=== PATIENT | female | born 1960 | race Caucasian/White ===

== ENCOUNTER 2020-02-29 08:08 | Outpatient (CLI) | payer OTHER, SELFPAY ==
[2020-02-29 08:51] LABS: Basophils Percent Auto 0.4 % (0.2-1.2); Eosinophils Absolute Auto 0.1 K/mm3 (0-0.3); Eosinophils Percent Auto 2.8 % (0-4.4); Hematocrit 38.1 % (37.0-47.0); Hemoglobin 12.8 g/dL (12.0-15.0); Immature Granulocyte Absolute 0.02 K/mm3 (0.00-0.031); Immature Granulocyte Percent A 0.4 % (0-0.5); Lymphocytes Absolute Auto 1.96 K/mm3 (0.9-3.2); Mean Corpuscular HGB Conc 33.6 g/dl (32-36); Mean Corpuscular Volume 92.3 fl (80-100); Mean Platelet Volume 9.7 fl (7.4-10.4); Monocytes Absolute Auto 0.5 K/mm3 (0.1-0.6); Monocytes Percent Auto 11.3 % (2.6-8.5); Neutrophils Percent Auto 43.1 % (45.5-73.1); Platelet Count Result 340 k/mm3 (150-375); Red Blood Count 4.13 M/mm3 (4.2-5.4); Red Cell Distribution Width 12.8 % (11.5-14.5); White Blood Count 4.7 K/mm3 (4.5-10.0)
[2020-02-29 09:06] LABS: Alanine Aminotransferase 29 U/L (4-35); Albumin Level 4.5 g/dL (3.5-5.1); Alkaline Phosphatase 63 U/L (38-126); Aspartate Amino Transferase 26 U/L (14-36); Bilirubin,Total 0.2 mg/dL (0.2-1.3); Blood Urea Nitrogen 16 mg/dL (7-17); Calcium 9.3 mg/dL (8.4-10.2); Carbon Dioxide 28 mmol/L (22-30); Chloride 105 mmol/L (98-107); Cholesterol 245 mg/dL (0-200); Estimated Glomerular Filt Rate > 60; Glucose 88 mg/dL (65-105); HDL Direct 55 mg/dL; Potassium 4.7 mmol/L (3.4-5.0); Sodium 140 mmol/L (137-145); Triglycerides 276 mg/dL (<150)
[2020-02-29 09:17] LABS: LDL Cholesterol Direct 143 mg/dL
== END 2020-02-29 08:09 | disposition home or self-care (01) ==
LOC: ANHLAB 08:10
PROVIDERS: PCP Internal Medicine; Visit Provider Nurse Practitioner
DX: E78.00 Pure hypercholesterolemia, unspecified (principal); I10 Essential (primary) hypertension
CPT/HCPCS: 36415; 80053; 80061; 85025

== ENCOUNTER 2020-05-06 09:51 | Outpatient (CLI) | payer OTHER, SELFPAY ==
--- NOTE | ~2020-05-06 | DEXA_ITS ---
Bone Density Report Name: Jaclyn Boykin Age: 60 Sex: Female Ethnicity: White Date of : 1960 Indication: postmenopausal; asthma or emphysema; Referring Provider: Deysi Herrmann Study: Bone densitometry was performed. Exam Date: May 06, 2020 Accession number: [id number] Bone Density: Region BMD T-score Z-score Classification AP Spine (L1-L4) 0.940 -1.0 0.4 Normal Femoral Neck (Left) 0.593 -2.3 -1.1 Osteopenia Total Hip (Left) 0.797 -1.2 -0.3 Osteopenia Total Hip Bilateral Avg 0.811 -1.1 -0.2 Osteopenia Femoral Neck (Right) 0.607 -2.2 -0.9 Osteopenia Total Hip (Right) 0.825 -1.0 -0.1 Normal World Health Organization criteria for BMD impression classify patients as: Normal (T-score at or above -1.0), Osteopenia (T-score between -1.0 and -2.5), or Osteoporosis (T-score at or below -2.5). 10-year Fracture Risk(1): Major Osteoporotic Fracture 9.7% Hip Fracture 1.5% Reported Risk Factors: [place] (), Neck BMD=0.593, BMI=22.9 (1) FRAX(R) Version 3.08. Fracture probability calculated for an untreated patient. Fracture probability may be lower if the patient has received treatment. Clinical Information Provided by Patient: Has used the following medications: Vitamin D, Calcium Has the following medical conditions: Asthma or Emphysema Patient maximum height was 62 Menopause Age: 51 Drinks caffeinated beverages Onset of menses at age 14 Number of children 1 Impression: The patient has low bone mass, based on the Left Femoral Neck T-score. The patient has an estimated ten-year risk of hip fracture of 1.5% and an estimated ten-year risk of major fracture of 9.7%, based on the WHO FRAX algorithm. Discussion: BONE DENSITY IS LOW AT ONE OR MORE SKELETAL SITES. This patient's lowest T-score is low at one or more skeletal sites. It meets the World Health Organization's (WHO) criteria for ?low bone mass? (T-score between -1.0 and -2.5). The patient's 10-year risk of fracture as calculated by FRAX is less than the threshold where pharmacological therapy is recommended by the National Osteoporosis Foundation (NOF). However, all treatment decisions require clinical judgment and consideration of individual patient factors, including patient preferences, comorbidities, previous drug use, risk factors not captured in the FRAX model (e.g., frailty, falls, vitamin D deficiency, increased bone turnover, interval significant decline in bone density) and possible under or overestimation of fracture risk by FRAX. The patient should follow a healthful lifestyle (good nutrition with adequate calcium and vitamin D, and appropriate weight-bearing exercise). Follow-Up: Consider repeating this study in 2 to 3 years to reassess this patient's status, or sooner if there is some new clinical indication. Reported by: Sebastián
== END 2020-05-06 09:52 | disposition home or self-care (01) ==
LOC: ANHIMG 09:52
PROVIDERS: PCP Internal Medicine; Visit Provider Nurse Practitioner
DX: Z78.0 Asymptomatic menopausal state (principal); M85.852 Other specified disorders of bone density and structure, left thigh; M85.851 Other specified disorders of bone density and structure, right thigh
CPT/HCPCS: 77080

== ENCOUNTER 2020-08-23 07:37 | Outpatient (CLI) | payer OTHER, SELFPAY ==
--- NOTE | ~2020-08-23 | MM_ITS ---
EXAMINATION: MM screening barbra BI w ivette HISTORY: Screening mammogram TECHNIQUE: Craniocaudal and mediolateral oblique 3-D tomosynthesis images were obtained and synthetic 2-D images were generated. Bilateral rotated lateral cc views. .CAD analysis was submitted and inter preted. COMPARISON: 08/02/2019, 08/08/2018 bilateral digital screening mammogram examinations BREAST PARENCHYMAL COMPOSITION: There are scattered areas of fibroglandular density. FINDINGS: There is no evidence of suspicious mass, calcification, or architectural distortion to sugg est malignancy in either breast. There has been no suspicious interval change. IMPRESSION: 1. No mammographic evidence of malignancy. 2. Recommend routine screening mammography in one year. BI-RADS Category 1: Negative Reviewed, dictated and finalized at location A. ONAL COMPUTER SPECIALIST
== END 2020-08-23 07:38 | disposition home or self-care (01) ==
LOC: ANHIMG 07:39
PROVIDERS: PCP Internal Medicine; Visit Provider Obstetrics & Gynecology
DX: Z12.31 Encounter for screening mammogram for malignant neoplasm of breast (principal)
CPT/HCPCS: 77063; 77067

== ENCOUNTER 2020-12-24 09:26 | Emergency (ER) | payer OTHER, SELFPAY ==
[2020-12-24 09:30] VITALS: BP 178/84; PULSE 91; RESP 16; TEMP 36.8; O2SAT 100
--- NOTE | 2020-12-24 09:33 | ED.GENADULT ---
HPI - General Adult General Chief complaint: Dizziness Stated complaint: VERTIGO Time Seen by Provider: 12/24/20 09:33 Source: patient and RN notes reviewed Mode of arrival: ambulatory Limitations: no limitations History of Present Illness HPI narrative: 60-year-old female presents with complaints of dizziness that has been going on for the past 28 hours. Jaclyn reports symptoms started upon awakening on 12/23/2020 approximately 05:00 with increasing symptoms throughout the night. Diazepam and exercises (learned during physical therapy for vertigo in the past) with some relief. History of Vertigo, last episode 2019. Exacerbating factors consist of changing position too fast turning head from side to side too fast. Mild relieving factors is sitting still. Nausea with 1 episode of emesis (last on 12/23/2020) without abdominal pain. Tolerating p.o. intake well. Denies ear pain, ear itching, ear trauma, trauma to head, syncopal episodes, altered vision, altered speech, confusion, or seizure activity. Denies headache, numbness or tingling in extremities. Denies chest pain or dyspnea. Denies URI symptoms, fever, or chills. Remains active. LMP postmenopausal. The patient reports she have not been diagnosed with COVID-19. The patient reports she is not waiting for the results of a COVID-19 lab test. The patient reports she do not have weakness or fatigue. The patient reports she do not have a new or worsening cough or shortness of breath. The patient reports she do not have any rhinorrhea, congestion, sore throat, loss of taste or smell, and diarrhea. Denies recent traveling. Denies concerns for COVID-19 or exposures been home with limited outdoor exposure except for essential household needs, work, and return home. At this time, patient is not suspected of having COVID-19. Some parts of this dictation were generated by voice recognition software and may contain typographical and/or grammatical inaccuracies. Related Data Allergies Allergy/AdvReac Type Severity Reaction Status Date / Time acetaminophen Allergy Mild RASH/SWELLI Verified 03/16/19 17:33 NG sumatriptan Allergy Mild HEART Verified 03/16/19 17:33 PALPITATIONS topiramate Allergy Mild HEART Verified 03/16/19 17:33 PALPITATION dicyclomine Allergy Unknown Verified 03/16/19 17:33 levofloxacin Allergy Unknown Verified 03/16/19 17:33 tramadol AdvReac Unknown CRAWLING Verified 03/16/19 17:33 OUT OF SKIN Contrast Media Allergy Mild Uncoded 03/16/19 17:33 HYDROCODONE BIT Allergy Mild RASH/SWELLI Uncoded 03/16/19 17:33 NG SUMATRIPTAN SUCCINATE Allergy Mild HEART Uncoded 03/16/19 17:33 PALPITATIONS Review of Systems Review of Systems: Narrative: CONSTITUTIONAL: Denies fever, chills, sweats. EYES: Denies visual changes, redness, discharge. ENT: Denies rhinorrhea, congestion, sore throat, otalgia. CARDIOVASCULAR: Denies chest pain, palpitations, edema. RESPIRATORY: Denies dyspnea, wheezing, cough. GASTROINTESTINAL: Denies abdominal pain, diarrhea. Complains of nausea, vomiting. SKIN: Denies lesions, itching, drainage. MUSCULOSKELETAL: Denies acute back pain, joint pain, or myalgia. NEUROLOGIC: Denies numbness or focal weakness. Complains of dizziness. PSYCHIATRIC: Denies anxiety or depression. All systems reviewed & are unremarkable except as noted in HPI and below. COUNTS INCLUDE 234 BEDS AT THE [facility] Past Medical History Medical History Allergies Anemia Cerebral infarction Depression Heartburn Herniated disc History of ectopic 1992 Hyperlipidemia Hypersomnia Hypertension Migraine Vertigo Surgical History Surgical History H/O dilation and curettage 1990 H/O tubal ligation 1997 Family History Family History Sibling Family history of osteoporosis Patient's sister is
[2020-12-24 09:47] VITALS: BP 163/80; PULSE 85
[2020-12-24] MEDS: MECLIZINE HCL 25 MG TABLET 50 MG PO (09:49)
[2020-12-24 09:50] VITALS: BP 167/83; PULSE 79
[2020-12-24] MEDS: ONDANSETRON HCL ODT 4 MG TABLET PO (09:50)
[2020-12-24 09:52] VITALS: BP 155/81; PULSE 83
[2020-12-24 09:54] LABS: Glucose Point of Care 105 (65-105)
--- NOTE | 2020-12-24 09:58 | ECG_ITS ---
Measurements Intervals [place] Rate: 83 P: 24 MA: 168 QRS: -9 QRSD: 95 T: 32 QT: 378 QTc: 445 Interpretive Statements SINUS RHYTHM INCOMPLETE RIGHT BUNDLE BRANCH BLOCK BORDERLINE ECG Electronically Signed On 12-24-2020 12:42:45 CDT by Brian Barth D.O.
--- NOTE | 2020-12-24 10:15 | PC.NURSE ---
Up to bathroom with assistance. States dizziness is slightly better, but not gone.
== END 2020-12-24 10:30 | disposition home or self-care (01) ==
PROVIDERS: Emergency Provider Nurse Practitioner Family; PCP Internal Medicine
DX: H81.12 Benign paroxysmal vertigo, left ear (principal); Z87.891 Personal history of nicotine dependence; F32.9 Major depressive disorder, single episode, unspecified; E78.5 Hyperlipidemia, unspecified; I10 Essential (primary) hypertension; Z86.73 Personal history of transient ischemic attack (TIA), and cerebral infarction without residual deficits; I45.10 Unspecified right bundle-branch block
CPT/HCPCS: 82948; 93005; 99213; A9270; G0463

== ENCOUNTER 2021-01-14 07:47 | Emergency (ER) | payer OTHER, SELFPAY ==
[2021-01-14] VITALS (29 sets, daily range): BP systolic 129–177; BP diastolic 78–114; PULSE 70–96; RESP 16–24; TEMP 36.7; O2SAT 91–100
--- NOTE | ~2021-01-14 | CT_ITS ---
EXAMINATION: CT brain wo con DATE: 01/14/2021 08:20 INDICATION: CVA TECHNIQUE: Computed tomography (CT) of the head was performed without intravenous contrast. The dose- length product was 529.67 mGy-cm. Automated exposure control and iterative reconstruction technique w ere employed. COMPARISON: CT dated 07/31/2019 FINDINGS: There are scattered moderate periventricular and subcortical white matter changes, most lik sander related to small vessel ischemic disease (microangiopathy). Small chronic infarcts of the cerebel lum. No acute intracranial hemorrhage, infarction, mass or mass effect. Normal santana-white differentia tion. No ventriculomegaly or midline shift. Paranasal sinuses and mastoids are pneumatized. No depres sed skull fractures. Midline sagittal images demonstrate a normal corpus callosum and craniovertebral junction. IMPRESSION: 1. No acute intracranial abnormality. No significant interval change. Reviewed, dictated and finalized at location B.
--- NOTE | ~2021-01-14 | XR_ITS ---
EXAMINATION: XR chest 1V 01/14/2021 08:25 INDICATION: Weakness and dyspnea PROCEDURE: AP view of the chest COMPARISON: No prior studies for comparison. FINDINGS: The lungs are clear. The cardiomediastinal silhouette is within normal limits. There are no pleural effusions. There is no pneumothorax suspected. IMPRESSION: 1: NO ACUTE CARDIOPULMONARY DISEASE. Reviewed, dictated and finalized at location B.
--- NOTE | 2021-01-14 08:02 | ECG_ITS ---
Measurements Intervals [place] Rate: 77 P: 16 CT: 165 QRS: -8 QRSD: 104 T: 32 QT: 368 QTc: 418 Interpretive Statements SINUS RHYTHM INCOMPLETE RIGHT BUNDLE BRANCH BLOCK BORDERLINE ECG Electronically Signed On 01-14-2021 8:20:37 CDT by Brian Barth D.O.
--- NOTE | 2021-01-14 08:08 | ED.GENADULT ---
HPI - General Adult General Chief complaint: Dizziness Stated complaint: dizziness Time Seen by Provider: 01/14/21 07:49 Source: patient History of Present Illness HPI narrative: Patient is a 60 y/o female complaining of moderate dizziness since 1 1/2 hour ago. She describes her dizziness any light-headedness and room spinning sensation. There is no alleviating or exacerbating factor. She has some nausea, but no vomiting. She also has some chest pain. She has no focal weakness or numbness. Related Data Home Medications Medication Instructions Recorded Confirmed aspirin 81 mg PO DAILY 01/14/21 Allergies Allergy/AdvReac Type Severity Reaction Status Date / Time acetaminophen Allergy Mild RASH/SWELLI Verified 01/07/21 14:19 NG sumatriptan Allergy Mild HEART Verified 01/07/21 14:19 PALPITATIONS topiramate Allergy Mild HEART Verified 01/07/21 14:19 PALPITATION dicyclomine Allergy Unknown Verified 01/07/21 14:19 levofloxacin Allergy Unknown Verified 01/07/21 14:19 hydrocodone Allergy Rash,SWELLI Verified 01/14/21 08:07 NG triamterene Allergy Unknown Verified 01/07/21 14:19 tramadol AdvReac Unknown CRAWLING Verified 01/07/21 14:19 OUT OF SKIN Contrast Media Allergy Mild Uncoded 01/07/21 14:19 Review of Systems Constitutional: Constitutional: Denies chills, Denies fever(s), Denies headache(s) and Denies weakness Eyes: Eyes: Denies blurry vision ENT: Denies headache(s) and Denies neck pain Cardiovascular: Cardiovascular: Reports chest pain and Denies dyspnea Respiratory: Respiratory: Denies cough and Denies dyspnea Gastrointestinal: Gastrointestinal: Denies abdominal pain, Denies diarrhea, Reports nausea and Denies vomiting Genitourinary: Genitourinary: Denies hematuria and Denies dysuria Musculoskeletal: Musculoskeletal: Denies back pain and Denies neck pain Neurologic: Reports dizziness, Denies headache(s) and Denies weakness PMFSH Past Medical History Medical History Allergies Anemia Cerebral infarction Depression Heartburn Herniated disc History of ectopic 1992 Hyperlipidemia Hypersomnia Hypertension Migraine Vertigo Surgical History Surgical History H/O dilation and curettage 1990 H/O tubal ligation 1997 Family History Family History Sibling Family history of osteoporosis Patient's sister is in good health Mother Patient's mother is in good health Family history of osteoarthritis Father Patient's father is in good health Family history of diabetes mellitus in first degree relative Grandparent Family history of osteoarthritis Diabetes mellitus Other Asthma Family history of allergic disorder Family history of migraine headaches Social History Social History Smoking status: Former smoker Tobacco type: cigarettes Second hand tobacco smoke exposure: No Smoking end date: 09/20/86 Alcohol intake: current Substance use: never Gender identity (if verbalized by the patient): Female Exam Const: General: no acute distress and well developed Orientation/consciousness: oriented to person, oriented to place, oriented to time and patient oriented x3 HENMT: Head: normocephalic Ears: external ears normal General nose exam: Normal external nose present Eyes: General: appearance normal, both eyes and all related structures Conjunctivae: conjunctivae normal Neck: Neck: normal visual inspection and full ROM Chest: Chest palpation & inspection: normal inspection of the chest and no tenderness Resp: Effort & Inspection: normal respiratory effort Auscultation: clear to auscultation bilaterally Cardio: Rate: regular rate Rhythm: regular rhythm GI: GI Palp: No abdominal tenderness and Yes Soft to palpation
[2021-01-14 08:14] LABS: Basophils Percent Auto 0.2 % (0.2-1.2); Eosinophils Absolute Auto 0.1 K/mm3 (0-0.3); Eosinophils Percent Auto 1.2 % (0-4.4); Hemoglobin 12.4 g/dL (12.0-15.0); Immature Granulocyte Absolute 0.01 K/mm3 (0.00-0.031); Immature Granulocyte Percent A 0.2 % (0-0.5); Lymphocytes Absolute Auto 1.74 K/mm3 (0.9-3.2); Lymphocytes Percent Auto 35.9 % (18.3-44.2); Mean Corpuscular HGB Conc 33.5 g/dl (32-36); Mean Corpuscular Hemoglobin 31.5 pg (26-34); Mean Corpuscular Volume 93.9 fl (80-100); Mean Platelet Volume 9.9 fl (7.4-10.4); Monocytes Absolute Auto 0.5 K/mm3 (0.1-0.6); Monocytes Percent Auto 10.7 % (2.6-8.5); Neutrophils Absolute Auto 2.5 K/mm3 (1.3-6.7); Neutrophils Percent Auto 51.8 % (45.5-73.1); Platelet Count Result 312 k/mm3 (150-375); Red Blood Count 3.94 M/mm3 (4.2-5.4); Red Cell Distribution Width 12.3 % (11.5-14.5); White Blood Count 4.9 K/mm3 (4.5-10.0)
[2021-01-14 08:23] LABS: Anion Gap 7 mmol/L (8-16); Blood Urea Nitrogen 17 mg/dL (7-17); Calcium 9.4 mg/dL (8.4-10.2); Carbon Dioxide 29 mmol/L (22-30); Chloride 106 mmol/L (98-107); Estimated CRCL calculation 62 ml/min; Estimated Glomerular Filt Rate > 60; Glucose 119 mg/dL (65-105); Potassium 4.1 mmol/L (3.4-5.0); Sodium 142 mmol/L (137-145)
[2021-01-14 08:34] LABS: INR 0.8; Prothrombin Time 11.9 Seconds (11.1-14.7)
[2021-01-14 08:35] LABS: Partial Thromboplastin Time 25.8 SECONDS (22.3-36.8); Troponin I < 0.012 ng/mL (0.000-0.034)
[2021-01-14] MEDS: MECLIZINE HCL 25 MG TABLET PO (08:40)
--- NOTE | 2021-01-14 10:40 | PC.NURSE ---
pt continues to c/o some dizziness. wtg time lapse for drawing of 3 hour troponin. resting quietly on stretcher.
[2021-01-14 11:47] LABS: Troponin I < 0.012 ng/mL (0.000-0.034)
== END 2021-01-14 12:30 | disposition home or self-care (01) ==
PROVIDERS: Emergency Provider Emergency Medicine; PCP Internal Medicine
DX: R42 Dizziness and giddiness (principal); R07.9 Chest pain, unspecified; E78.5 Hyperlipidemia, unspecified; I10 Essential (primary) hypertension; Z79.82 Long term (current) use of aspirin; Z87.891 Personal history of nicotine dependence; Z86.2 Personal history of diseases of the blood and blood-forming organs and certain disorders involving the immune mechanism; I45.10 Unspecified right bundle-branch block; Z86.73 Personal history of transient ischemic attack (TIA), and cerebral infarction without residual deficits
CPT/HCPCS: 36415; 70450; 71045; 80048; 84484; 85025; 85610; 85730; 93005; 99284; A9270

== ENCOUNTER 2021-02-04 08:30 | Outpatient (CLI) | payer OTHER, SELFPAY ==
--- NOTE | 2021-02-04 08:50 | EST_ITS ---
Patient Info Name: Jaclyn Boykin Age: 61 years : 1960 Gender: Female Ht: 63 in Wt: 130 lbs BSA: 1.63 m2 Exam Date: 02/04/2021 9:33 AM Exam Location: [facility] Stress Patient Status: Outpatient Admit Date: 02/04/2021 Staff Ordering Physician: Alondra Roldan Attending Provider: Alondra Roldan Exercise Technologist: Trisha Stone CT Exercise Physician: Brian Barth DO Exam Type: CA stress test treadmill Study Info An exercise stress test was performed. Summary 1. 1. Negative Angel exercise stress test for ischemic ST changes by ECG criteria. 2. 2. Good functional capacity, achieving 10 METs of workload. 3. 3. Appropriate HR response to exercise. 4. 4. Appropriate HR recovery at 1 minute post exercise. 5. 5. No imaging with stress testing. 6. 6. Patient informed of the above results. Protocol: Angel Stress ECG Details Stage: REST Duration (min): 1 min : 37 sec Speed (mph): 0.0 Grade (%): 0 HR (bpm): 81 SBP (mmHg): 149 DBP (mmHg): 98 METS: --- Stage: REST Duration (min): 11 min : 17 sec Speed (mph): 0.0 Grade (%): 0 HR (bpm): 83 SBP (mmHg): 149 DBP (mmHg): 98 METS: --- Stage: STAGE 1 Duration (min): 1 min : 0 sec Speed (mph): 1.7 Grade (%): 10 HR (bpm): 102 SBP (mmHg): 149 DBP (mmHg): 98 METS: --- Stage: STAGE 1 Duration (min): 2 min : 0 sec Speed (mph): 1.7 Grade (%): 10 HR (bpm): 115 SBP (mmHg): 149 DBP (mmHg): 98 METS: --- Stage: STAGE 1 Duration (min): 3 min : 0 sec Speed (mph): 1.7 Grade (%): 10 HR (bpm): 114 SBP (mmHg): 180 DBP (mmHg): 77 METS: --- Stage: STAGE 2 Duration (min): 1 min : 0 sec Speed (mph): 2.5 Grade (%): 12 HR (bpm): 119 SBP (mmHg): 180 DBP (mmHg): 77 METS: --- Stage: STAGE 2 Duration (min): 2 min : 0 sec Speed (mph): 2.5 Grade (%): 12 HR (bpm): 121 SBP (mmHg): 173 DBP (mmHg): 76 METS: --- Stage: STAGE 2 Duration (min): 3 min : 0 sec Speed (mph): 2.5 Grade (%): 12 HR (bpm): 122 SBP (mmHg): 173 DBP (mmHg): 76 METS: --- Stage: STAGE 3 Duration (min): 1 min : 0 sec Speed (mph): 3.4 Grade (%): 14 HR (bpm): 135 SBP (mmHg): 175 DBP (mmHg): 71 METS: --- Stage: STAGE 3 Duration (min): 1 min : 46 sec Speed (mph): 3.4 Grade (%): 14 HR (bpm): 141 SBP (mmHg): 175 DBP (mmHg): 71 METS: --- Stage: RECOVERY Duration (min): 0 min : 13 sec Speed (mph): 1.5 Grade (%): 0 HR (bpm): 143 SBP (mmHg): 175 DBP (mmHg): 71 METS: --- Stage: RECOVERY Duration (min): 1 min : 13 sec Speed (mph): 0.0 Grade (%): 0 HR (bpm): 118 SBP (mmHg): 175 DBP (mmHg): 71 METS: --- Stage: RECOVERY Duration (min): 2 min : 13 sec Speed (mph): 0.0 Grade (%): 0 HR (bpm): 102
== END 2021-02-04 08:31 | disposition home or self-care (01) ==
PROVIDERS: PCP Internal Medicine; Visit Provider Clinical Nurse Specialist
DX: R07.89 Other chest pain (principal)
CPT/HCPCS: 93017

== ENCOUNTER 2021-04-16 14:33 | Outpatient (CLI) | payer OTHER, SELFPAY ==
[2021-04-16 14:57] LABS: Basophils Percent Auto 0.4 % (0.2-1.2); Eosinophils Absolute Auto 0.1 K/mm3 (0-0.3); Eosinophils Percent Auto 1.8 % (0-4.4); Hematocrit 39.4 % (37.0-47.0); Immature Granulocyte Absolute 0.01 K/mm3 (0.00-0.031); Immature Granulocyte Percent A 0.2 % (0-0.5); Lymphocytes Absolute Auto 1.84 K/mm3 (0.9-3.2); Lymphocytes Percent Auto 33.8 % (18.3-44.2); Mean Corpuscular Hemoglobin 31.1 pg (26-34); Mean Corpuscular Volume 94.3 fl (80-100); Mean Platelet Volume 9.8 fl (7.4-10.4); Monocytes Absolute Auto 0.4 K/mm3 (0.1-0.6); Monocytes Percent Auto 7.5 % (2.6-8.5); Neutrophils Absolute Auto 3.1 K/mm3 (1.3-6.7); Neutrophils Percent Auto 56.3 % (45.5-73.1); Platelet Count Result 334 k/mm3 (150-375); Red Blood Count 4.18 M/mm3 (4.2-5.4); Red Cell Distribution Width 12.4 % (11.5-14.5); White Blood Count 5.5 K/mm3 (4.5-10.0)
[2021-04-16 15:07] LABS: Anion Gap 10 mmol/L (8-16); Blood Urea Nitrogen 19 mg/dL (7-17); Calcium 9.6 mg/dL (8.4-10.2); Carbon Dioxide 28 mmol/L (22-30); Chloride 106 mmol/L (98-107); Estimated Glomerular Filt Rate > 60; Glucose 116 mg/dL (65-110); Potassium 4.4 mmol/L (3.4-5.0); Sodium 144 mmol/L (137-145)
[2021-04-16 15:38] LABS: Thyroid Stimulating Hormone 0.649 uIU/mL (0.465-4.680)
== END 2021-04-16 14:34 | disposition home or self-care (01) ==
PROVIDERS: PCP Internal Medicine; Visit Provider Clinical Nurse Specialist
DX: R42 Dizziness and giddiness (principal)
CPT/HCPCS: 36415; 80048; 84443; 85025

== ENCOUNTER 2021-05-02 08:00 | Outpatient (RCR) | payer OTHER, SELFPAY ==
--- NOTE | 2021-02-03 16:08 | PTOPEVAL ---
INITIAL PHYSICAL THERAPY EVALUATION and PLAN OF CARE Thank you for referring Jaclyn Boykin to [facility].? The patient is scheduled to be seen for physical therapy? 2x/week for 4 weeks. Please review, sign, date and return this plan of care TABITHA. I agree with and certify that the following plan of care is medically necessary. Referring Physician Date Admitting Provider: Attending Provider: ALLI Henao Referring Provider: *PT Outpatient Evaluation Start: 02/03/21 14:47 Freq: Status: Active Protocol: Document 02/03/21 14:45 ROSALES (Rec: 02/03/21 16:07 ROSALES [id number]) Therapy Assessment Status Assessment Status Assessment Status Evaluation Outpatient Past Medical History Past Medical History Source of Past Medical History Recalled from Previous Visit, Confirmed with Patient/Family Neurological History Hx Migraine Yes Hx Transient Ischemic Attacks (TIA) Yes Cardiovascular History Hx Hypercholesterolemia Yes Hx Hypertension Yes Musculoskeletal History Hx Spinal Surgery Yes: cervical disc replacements 2009, L5 back fusion Reproductive History Hx Post Menopausal Yes Hx Tubal Ligation Yes Hx Other Reproductive Disorders Yes: ectopic Evaluation Information Problem Diagnosis Dizziness and giddiness Onset December 2020 Additional Evaluation Detail 4th episode - being referred to a new neurologist at [facility], also has seen ENT Subjective Information 1st episode 2014, then next Query Text:As Reported By Patient/ one 4 years later, now every 2 Family years Feels like sitting still - everything spinning around her . When gets up in morning - rolls to R side to avoid triggering the sensation - the dizziness is usually on the L side. 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 Also needs to have dim lights - she is sensitive to the brightness. Last session in PT was taught eye exercises - did try them again - seems to make it worse -
--- NOTE | 2021-03-10 16:49 | PTOPEVAL ---
PHYSICAL THERAPY RE-EVALUATION and PLAN OF CARE Thank you for referring Jaclyn Boykin to [facility].? Becki has reached all goals in regards to dizziness but still having increased cervical pain. She will benefit from continued skilled PT 2x/week for 4 weeks. Please review, sign, date and return this plan of care TABITHA. I agree with and certify that the following plan of care is medically necessary. Referring Physician Date Admitting Provider: Attending Provider: ALLI Henao Referring Provider: Therapy Assessment Status Assessment Status Assessment Status Re-evaluation Evaluation Information Problem Diagnosis Dizziness and giddiness, neck pain Subjective Information Becki continues to report no Query Text:As Reported By Patient/ dizziness. Increase with neck Family pain today - both sides and has a headache. She feels that she is 75% better with work activities - but will still need to stop for repositioning at times. Still really liking the foam roller - uses it daily. Pain Assessment Self Report Pain Assessment Spine, Cervical Reported Pain Level 4 Pain Description Aching Lowest Pain Intensity 2 Greatest Pain Intensity 5 Additional Pain Comments frontal headache today Cervical and Lumbar ROM Cervical ROM Cervical Flexion (0-60) 30 Query Text:Active in Degrees Cervical Extension (0-70) 35 Query Text:Active in Degrees Cervical Lateral Flexion Right (0-50) 40 Query Text:Active in Degrees Cervical Lateral Flexion Left (0-50) 25 Query Text:Active in Degrees Cervical Rotation Right (0-90) 30 Query Text:Active in Degrees Cervical Rotation Left (0-90) 28 Query Text:Active in Degrees Cervical ROM Comments pain with most motions Cervical and Lumbar Muscle Testing Cervical Muscle Testing Deep Cervical Flexion 8 sec Palpation Assessment Palpation Palpation stiffness with P-A mob T3-C7, increase in soft tissue tension - bilat upper trapezius,levator scapulae and scalene tightness present today. Suboccipital tissue tightness also present Mild R pectoralis tightness present PT Clinical Summary Clinical Summary Protocol: PTEVCODE PT Clinical Summary Dizziness Handicap Inventory - 0% Neck Disability Index - 26%
--- NOTE | 2021-04-08 17:45 | PTOPEVAL ---
PHYSICAL THERAPY PLAN OF CARE UPDATE Thank you for referring Jaclyn Boykin to [facility].? The patient is scheduled to be seen for therapy? follow-up in 1 month. Please review, sign, date and return this plan of care TABITHA. I agree with and certify that the following plan of care is medically necessary. Referring Physician Date Attending Provider: Alondra Roldan, MATTRESS FINISHER-C Progress Diagnosis Dizziness and giddiness, neck pain Onset December 2020 Subjective Information Overall feeling much improved Query Text:As Reported By Patient/ with involvement of dry Family needling treatments. States that she does not feel like her pain relief will be permanent. And due to her history, I agree that she may need assist in pain relief intermittently. Self Report Pain Assessment Spine, Cervical Reported Pain Level 2 Pain Description Aching Other Pain Description . Lowest Pain Intensity 2 Greatest Pain Intensity 5 Pain Score Pain Score 2: Self Report Interventions Used Interventions Used By Clinicians Dry Needling,Manual Therapy Techniques Cervical and Lumbar ROM Cervical ROM Cervical Flexion (0-60) 30 Query Text:Active in Degrees Cervical Extension (0-70) 35 Query Text:Active in Degrees Cervical Lateral Flexion Right (0-50) 40 Query Text:Active in Degrees Cervical Lateral Flexion Left (0-50) 25 Query Text:Active in Degrees Cervical Rotation Right (0-90) 45 Query Text:Active in Degrees Cervical Rotation Left (0-90) 4 Query Text:Active in Degrees Cervical ROM 75% of Normal Cervical ROM Comments . Palpation Assessment Palpation Palpation quality of soft tissue improving; continues to have some tightness Manual Therapy Manual Therapy Manual Therapy Location cervical Patient Position Prone Manual Therapy Treatment Soft Tissue Mobilization Manual Therapy Movement Direction Anterior-Posterior Movement Findings Moderate Hypomobility Treatment Comments performed soft tissue work to Query Text:Include Technique and bilateral upper trapezius, Result of Technique infraspinatus, and cervical extensors/paraspinals Functional Dry Needling Location Bilateral Muscle Location infraspinatus, upper trapezius Muscle Treatment Position Prone Alcohol Prep Don
== END 2021-05-04 23:59 | disposition home or self-care (01) ==
LOC: ANHHIPT 08:00
PROVIDERS: PCP Internal Medicine; Visit Provider Clinical Nurse Specialist
DX: R42 Dizziness and giddiness (principal)
CPT/HCPCS: 97035; 97110; 97140; 97162

== ENCOUNTER 2021-05-14 11:17 | Outpatient (RCR) | payer OTHER, SELFPAY ==
--- NOTE | 2021-05-13 17:12 | PCPTNOTE ---
The treatment documented on this account is a continuation of the treatment documented on visit number [id number]. Please see documentation on both accounts to view progress. The Plan of Care has been transitioned and updated within the new V#. I have addressed and agree with the discipline specific Problems, Interventions, and Goals for the current certification period. Completed interventions, outcomes, and problems have been marked as Inactive to facilitate the copying of the Care plan routine for recurring accounts.
--- NOTE | 2021-05-13 17:13 | PCPTNOTE ---
PHYSICAL THERAPY DISCHARGE NOTE Attending Provider: Alondra Roldan, MARLONC Patient:Jaclyn Boykin Date of :1960 Jaclyn has participated in physical therapy for 16 visits. She was last here a month ago and we followed up on her care today. Her symptoms, she states, were doing well for a couple of weeks but feels like I am back to square one. She is going to see a new neurologist on June 04. Due to plateau in findings and symptoms I recommend discharge from PT at this time. Findings today are consistent with progress report from 04/08/2021. Thank you for referring this patient to [facility]. Please review, sign, date and return this discharge summary TBAITHA. I have been updated about the patient's current status and I agree with discharge from the above service at this time. Referring Physician Date
== END 2021-05-14 11:18 | disposition home or self-care (01) ==
LOC: ANHPT 11:17
PROVIDERS: PCP Internal Medicine; Visit Provider Clinical Nurse Specialist
DX: R42 Dizziness and giddiness (principal)
CPT/HCPCS: 97035; 97140

== ENCOUNTER 2021-09-25 07:30 | Outpatient (CLI) | payer OTHER, SELFPAY ==
--- NOTE | ~2021-09-25 | MM_ITS ---
EXAMINATION: MM screening [facility] BI w ivette HISTORY: Screening mammogram TECHNIQUE: Craniocaudal and mediolateral oblique 3-D tomosynthesis images were obtained and synthetic 2-D images were generated. CAD analysis was submitted and interpreted. COMPARISON: 08/23/2020, 08/02/2019, 08/08/2018 BREAST PARENCHYMAL COMPOSITION: There are scattered areas of fibroglandular density. FINDINGS: There is no evidence of suspicious mass, calcification, or architectural distortion to sugg est malignancy in either breast. There has been no suspicious interval change. IMPRESSION: 1. No mammographic evidence of malignancy. 2. Recommend routine screening mammography in one year. BI-RADS Category 1: Negative Reviewed, dictated and finalized at location A. AL SERVICE WINDOW CLERK
== END 2021-09-25 07:31 | disposition home or self-care (01) ==
LOC: ANHIMG 07:33
PROVIDERS: PCP Internal Medicine; Visit Provider Obstetrics & Gynecology
DX: Z12.31 Encounter for screening mammogram for malignant neoplasm of breast (principal)
CPT/HCPCS: 77063; 77067

== ENCOUNTER 2022-02-03 15:44 | Emergency (ER) | payer OTHER, SELFPAY ==
[2022-02-03 15:51] VITALS: BP 163/89; PULSE 92; RESP 18; TEMP 36.8; O2SAT 98
--- NOTE | 2022-02-03 15:52 | ED.SKABFB ---
HPI - Skin/Abscess/Foreign Bdy General Chief complaint: Skin/Abscess/Foreign Body Stated complaint: Insect Bite Rt upper arm Time Seen by Provider: 02/03/22 16:02 Source: patient and RN notes reviewed Mode of arrival: ambulatory Limitations: no limitations History of Present Illness HPI narrative: 62-year-old female presents with concern for insect bite to her right arm. Reports she was at work in a basement when she felt a bite to the upper arm she later noticed burning and stinging to the area with surrounding redness. She denies warm-ups, swollen tongue, trouble breathing. She denies. MD complaint: insect bite/sting Related Data Home Medications Medication Instructions Recorded Confirmed losartan 25 mg PO DAILY 02/03/22 02/03/22 nortriptyline 20 mg PO HS 02/03/22 02/03/22 rimegepant [Nurtec ODT] 75 mg PO DIRECTED 02/03/22 02/03/22 rosuvastatin 20 mg PO DAILY 02/03/22 02/03/22 Allergies Allergy/AdvReac Type Severity Reaction Status Date / Time acetaminophen Allergy Mild RASH/SWELLI Verified 01/07/21 14:19 NG sumatriptan Allergy Mild HEART Verified 01/07/21 14:19 PALPITATIONS topiramate Allergy Mild HEART Verified 01/07/21 14:19 PALPITATION dicyclomine Allergy Unknown Verified 01/07/21 14:19 levofloxacin Allergy Unknown Verified 01/07/21 14:19 hydrocodone Allergy Rash,SWELLI Verified 01/14/21 08:07 NG triamterene Allergy Unknown Verified 01/07/21 14:19 tramadol AdvReac Unknown CRAWLING Verified 01/07/21 14:19 OUT OF SKIN Contrast Media Allergy Mild Uncoded 01/07/21 14:19 Review of Systems Review of Systems: CONSTITUTIONAL: Denies malaise, chills, sweats, or fever. EYES: Denies redness, or discharge. ENT: Denies swollen lips, swollen tongue CARDIOVASCULAR: Denies chest pain, palpitations, or edema. RESPIRATORY: Denies cough or dyspnea. GASTROINTESTINAL: Denies abdominal pain, nausea, vomiting SKIN: Reports stinging red area on her right upper forearm MUSCULOSKELETAL: Denies joint pain or myalgia. NEUROLOGIC: Denies headache. All systems reviewed & are unremarkable except as noted in HPI and below PMFSH Past Medical History Medical History (Updated 02/03/22 @ 16:10 by Terrie Flores NP) Allergies Anemia Cerebral infarction Depression Heartburn Herniated disc History of ectopic 1992 Hyperlipidemia Hypersomnia Hypertension Migraine Vertigo Surgical History Surgical History H/O dilation and curettage 1990 H/O tubal ligation 1997 Family History Family History Sibling Family history of osteoporosis Patient's sister is in good health Mother Patient's mother is in good health Family history of osteoarthritis Father Patient's father is in good health Family history of diabetes mellitus in first degree relative Grandparent Family history of osteoarthritis Diabetes mellitus Other Asthma Family history of allergic disorder Family history of migraine headaches Social History Social History Smoking status: Former smoker Tobacco type: cigarettes Second hand tobacco smoke exposure: No Smoking end date: 09/20/86 Alcohol intake: current Substance use: never Gender identity (if verbalized by the patient): Female Sexual Orientation (if Verbalized by the Patient): Straight or Heterosexual Comments At time of signature, agree with nursing past medical, surgical, social and family history. There is no relevant family history pertinent to the presenting complaint Exam Narrative: GENERAL: Well-appearing, well-nourished, and in no acute distress. HEAD: Normocephalic, atraumatic. EYES: PERRLA, conjunctivae clear. ENT: Mucous membranes moist. NECK: Supple. No lymphadenopathy CHEST: Clear to auscultation. No respiratory distress. HEART: Regular rate and rhy
== END 2022-02-03 16:15 | disposition home or self-care (01) ==
PROVIDERS: Emergency Provider Nurse Practitioner; PCP Internal Medicine
DX: S40.861A Insect bite (nonvenomous) of right upper arm, initial encounter (principal); W57.XXXA Bitten or stung by nonvenomous insect and other nonvenomous arthropods, initial encounter; Z87.891 Personal history of nicotine dependence; R12 Heartburn; E78.5 Hyperlipidemia, unspecified; I10 Essential (primary) hypertension; Z86.73 Personal history of transient ischemic attack (TIA), and cerebral infarction without residual deficits
CPT/HCPCS: 99213; G0463

== ENCOUNTER 2022-05-08 07:33 | Outpatient (CLI) | payer OTHER, SELFPAY ==
[2022-05-08 07:43] LABS: Basophils Percent Auto 0.4 % (0.2-1.2); Eosinophils Absolute Auto 0.2 K/mm3 (0-0.3); Eosinophils Percent Auto 3.5 % (0-4.4); Hematocrit 39.1 % (37.0-47.0); Hemoglobin 12.7 g/dL (12.0-15.0); Immature Granulocyte Absolute 0.02 K/mm3 (0.00-0.031); Immature Granulocyte Percent A 0.4 % (0-0.5); Lymphocytes Absolute Auto 2.25 K/mm3 (0.9-3.2); Lymphocytes Percent Auto 44.3 % (18.3-44.2); Mean Corpuscular HGB Conc 32.5 g/dl (32-36); Mean Corpuscular Hemoglobin 30.5 pg (26-34); Mean Platelet Volume 9.4 fl (7.4-10.4); Monocytes Absolute Auto 0.5 K/mm3 (0.1-0.6); Monocytes Percent Auto 9.4 % (2.6-8.5); Neutrophils Absolute Auto 2.1 K/mm3 (1.3-6.7); Platelet Count Result 324 k/mm3 (150-375); Red Blood Count 4.16 M/mm3 (4.2-5.4); Red Cell Distribution Width 13.4 % (11.5-14.5); White Blood Count 5.1 K/mm3 (4.5-10.0)
[2022-05-08 07:58] LABS: Alanine Aminotransferase 32 U/L (6-35); Albumin Level 4.5 g/dL (3.5-5.1); Alkaline Phosphatase 68 U/L (38-126); Anion Gap 7 mmol/L (8-16); Aspartate Amino Transferase 27 U/L (14-36); Bilirubin,Total 0.2 mg/dL (0.2-1.3); Blood Urea Nitrogen 19 mg/dL (7-17); Calcium 9.6 mg/dL (8.4-10.2); Carbon Dioxide 32 mmol/L (22-30); Chloride 101 mmol/L (98-107); Cholesterol 278 mg/dL (0-200); Estimated Glomerular Filt Rate > 60; Glucose 98 mg/dL (65-110); HDL Direct 54 mg/dL; Potassium 4.2 mmol/L (3.4-5.0); Sodium 140 mmol/L (137-145); Triglycerides 231 mg/dL (<150)
[2022-05-08 08:09] LABS: LDL Cholesterol Direct 162 mg/dL
[2022-05-08 08:50] LABS: Vitamin D 25 Hydroxy 77.3 ng/mL
== END 2022-05-08 07:34 | disposition home or self-care (01) ==
PROVIDERS: PCP Internal Medicine; Visit Provider Nurse Practitioner
DX: M85.80 Other specified disorders of bone density and structure, unspecified site (principal); I10 Essential (primary) hypertension
CPT/HCPCS: 36415; 80053; 80061; 82306; 84443; 85025

== ENCOUNTER 2022-07-09 15:53 | Outpatient (CLI) | payer OTHER, SELFPAY ==
--- NOTE | ~2022-07-09 | DEXA_ITS ---
Bone Density Report Name: TOBIAS ZAMBRANO Age: 62 Sex: Female Ethnicity: White Date of : 1960 Indication: postmenopausal; screening for osteoporosis; height loss; prior fracture; Referring Provider: MARCELINO FLORES Study: Bone densitometry was performed. Exam Date: July 09, 2022 Accession number: [id number] Bone Density: Region BMD T-score Z-score Classification AP Spine(L1-L4) 0.955 -0.8 0.7 Normal Femoral Neck (Left) 0.565 -2.6 -1.2 Osteoporosis Total Hip (Left) 0.763 -1.5 -0.4 Osteopenia Femoral Neck (Right) 0.612 -2.1 -0.8 Osteopenia Total Hip (Right) 0.821 -1.0 0.0 Normal Total Hip Mean 0.792 -1.3 -0.2 Osteopenia World Health Organization criteria for BMD impression classify patients as: Normal (T-score at or above -1.0), Osteopenia (T-score between -1.0 and -2.5), or Osteoporosis (T-score at or below -2.5). 10-year Fracture Risk: FRAX not reported because: Some T-score for Spine Total or Hip Total or Femoral Neck at or below -2.5 Prior hip or vertebral fracture Clinical Information Provided by Patient: Have had a previous hip or vertebral fracture Has had a low trauma fracture Has used the following medications: Vitamin D Patient maximum height was 63 Menopause Age: 51 Drinks caffeinated beverages Onset of menses at age 13 Number of children 1 Impression: The patient has established osteoporosis, based on the Left Femoral Neck T-score and the existence of a prior fracture. The patient has risk factors, including: previous fracture. Discussion: HIGH RISK OF FRACTURE. BONE DENSITY IS UNDESIRABLY LOW AT ONE OR MORE SKELETAL SITES, CONSISTENT WITH POSTMENOPAUSAL OSTEOPOROSIS. This patient's lowest T-score, in a patient who has previously fractured, meets the World Health Organization's (WHO) criteria for severe osteoporosis. In untreated patients, the risk of osteoporotic fracture increases approximately two-fold for each 1.0 SD decrease in T-score. Low bone density is not the only risk factor for fracture; also consider factors such as patient's age, frailty or poor health, risk of falling, risk of injury, previous osteoporotic fracture, family history of osteoporosis, cigarette smoking, low body weight, etc. Not everyone with low bone mineral density has osteoporosis; osteomalacia and other metabolic bone disorders should also be considered. Patients who have osteoporosis should be evaluated for specific diseases and conditions (secondary causes) that may cause or contribute to bone loss. The [place] [employer]ocrinologists (AACE) and National Osteoporosis Foundation (NOF) recommend pharmacologic intervention for all postmenopausal women with a previous hip or vertebral fracture and a T-score in this range. The patient should follow a healthful lifestyle (good n
== END 2022-07-09 15:54 | disposition home or self-care (01) ==
PROVIDERS: PCP Internal Medicine; Visit Provider Nurse Practitioner
DX: Z78.0 Asymptomatic menopausal state (principal); M81.0 Age-related osteoporosis without current pathological fracture; M85.852 Other specified disorders of bone density and structure, left thigh; M85.851 Other specified disorders of bone density and structure, right thigh
CPT/HCPCS: 77080

== ENCOUNTER 2022-07-22 15:51 | Emergency (ER) | payer OTHER, SELFPAY ==
[2022-07-22 16:53] VITALS: BP 152/88; PULSE 87; RESP 18; TEMP 36.9; O2SAT 99
--- NOTE | 2022-07-22 17:00 | ED.DENTAL ---
HPI - Dental/Oral General Chief complaint: Dental/Oral Stated complaint: toothache Time Seen by Provider: 07/22/22 17:00 Source: patient Mode of arrival: ambulatory Limitations: no limitations History of Present Illness HPI Narrative: 62-year-old female presents with dental pain. He reports crown placed 1 week ago. Has been having pain, hot cold Sensitivity since then. call dentist and not able to see her for another 10 days. States her dentist is out sick. Has taken ibuprofen and Tylenol with no relief. A statin and has to her pain. Is concerned she has infection. All systems reviewed and negative except as noted above. Related Data Home Medications Medication Instructions Recorded Confirmed nortriptyline 10 mg capsule 20 mg PO HS 02/03/22 07/22/22 rimegepant 75 mg disintegrating 75 mg PO DIRECTED 02/03/22 07/22/22 tablet (Nurtec ODT) prochlorperazine maleate 10 mg 10 mg PO Q8H PRN Nausea 04/30/22 07/22/22 tablet fremanezumab-vfrm 225 mg/1.5 mL 225 mg subcut MONTHLY 07/17/22 07/22/22 subcutaneous syringe (Ajovy Syringe) Allergies Allergy/AdvReac Type Severity Reaction Status Date / Time acetaminophen Allergy Mild RASH/SWELLI Verified 07/22/22 17:05 NG sumatriptan Allergy Mild HEART Verified 07/22/22 17:05 PALPITATIONS topiramate Allergy Mild HEART Verified 07/22/22 17:05 PALPITATION dicyclomine Allergy Unknown Chest Pain Verified 07/22/22 17:05 levofloxacin Allergy Unknown Chest Pain Verified 07/22/22 17:05 hydrocodone Allergy Rash,SWELLI Verified 07/22/22 17:05 NG triamterene Allergy Unknown Verified 07/22/22 17:05 tramadol AdvReac Unknown CRAWLING Verified 07/22/22 17:05 OUT OF SKIN Contrast Media Allergy Mild Hives Uncoded 07/22/22 17:05 Review of Systems Review of Systems: CONSTITUTIONAL: Denies fever, chills, or sweats. EYES: Denies visual changes, redness, or discharge. ENT: Denies rhinorrhea, congestion, sore throat, or otalgia. Reports dental pain. CARDIOVASCULAR: Denies chest pain, palpitations, or edema. RESPIRATORY: Denies cough or dyspnea. GASTROINTESTINAL: Denies abdominal pain, nausea, vomiting, or diarrhea. GENITOURINARY: Denies dysuria or hematuria. SKIN: Denies rash or itching. MUSCULOSKELETAL: Denies back pain, joint pain, or myalgia. NEUROLOGIC: Denies headache, numbness, or weakness. PSYCHIATRIC: Denies anxiety or depression. All other systems reviewed are negative, except as documented in HPI. [facility] Past Medical History Medical History Allergies Anemia Cerebral infarction Depression Heartburn Herniated disc History of ectopic 1992 Hyperlipidemia Hypersomnia Hypertension Migraine Vertigo Surgical History Surgical History H/O dilation and curettage 1990 H/O tubal ligation 1997 Family History Family History Sibling Family history of osteoporosis Patient's sister is in good health Mother Patient's mother is in good health Family history of osteoarthritis Father Patient's father is in good health Family history of diabetes mellitus in first degree relative Grandparent Family history of osteoarthritis Diabetes mellitus Other Asthma Family history of allergic disorder Family history of migraine headaches Social History Social History Smoking status: Former smoker Tobacco type: cigarettes Second hand tobacco smoke exposure: No Smoking end date: 09/20/86 Alcohol intake: current Substance use: never Gender identity (if verbalized by the patient): Female Sexual Orientation (if Verbalized by the Patient): Straight or Heterosexual Comments At time of signature, agree with nursing past medical, surgical, social and family history. There is no relevant f
== END 2022-07-22 17:20 | disposition home or self-care (01) ==
PROVIDERS: Emergency Provider Nurse Practitioner Family; PCP Internal Medicine
DX: K08.89 Other specified disorders of teeth and supporting structures (principal); Z87.891 Personal history of nicotine dependence; I25.2 Old myocardial infarction; F32.A Depression, unspecified; E78.5 Hyperlipidemia, unspecified; I10 Essential (primary) hypertension
CPT/HCPCS: 99213; G0463

== ENCOUNTER 2022-08-12 12:55 | Emergency (ER) | payer OTHER, SELFPAY ==
--- NOTE | 2022-08-12 13:10 | ED.URI ---
HPI - URI/Sore Throat General Chief Complaint: Upper Respiratory Infection Stated Complaint: sinus congestion, cough Time Seen by Provider: 08/12/22 13:10 Source: patient Mode of arrival: ambulatory Limitations: no limitations History of Present Illness HPI Narrative: 62-year-old female presents with complaint of sinus congestion, pressure, sinus headaches for approximately 10 days. Is using Claritin-D and Flonase with no relief. Reports today she is feeling fatigued and sinus pain is worse. All systems reviewed and negative except as noted above. Related Data Home Medications Medication Instructions Recorded Confirmed nortriptyline 10 mg capsule 20 mg PO HS 02/03/22 08/12/22 rimegepant 75 mg disintegrating 75 mg PO DIRECTED 02/03/22 08/12/22 tablet (Nurtec ODT) prochlorperazine maleate 10 mg 10 mg PO Q8H PRN Nausea 04/30/22 08/12/22 tablet fremanezumab-vfrm 225 mg/1.5 mL 225 mg subcut MONTHLY 07/17/22 08/12/22 subcutaneous syringe (Ajovy Syringe) Allergies Allergy/AdvReac Type Severity Reaction Status Date / Time acetaminophen Allergy Mild RASH/SWELLI Verified 08/12/22 13:02 NG sumatriptan Allergy Mild HEART Verified 08/12/22 13:02 PALPITATIONS topiramate Allergy Mild HEART Verified 08/12/22 13:02 PALPITATION dicyclomine Allergy Unknown Chest Pain Verified 08/12/22 13:02 levofloxacin Allergy Unknown Chest Pain Verified 08/12/22 13:02 hydrocodone Allergy Rash,SWELLI Verified 08/12/22 13:02 NG triamterene Allergy Unknown Verified 08/12/22 13:02 tramadol AdvReac Unknown CRAWLING Verified 08/12/22 13:02 OUT OF SKIN Contrast Media Allergy Mild Hives Uncoded 08/12/22 13:02 Review of Systems Review of Systems: CONSTITUTIONAL: Denies fever, chills, or sweats. EYES: Denies visual changes, redness, or discharge. ENT: Reports rhinorrhea, congestion, sinus pressure. Denies sore throat, or otalgia. CARDIOVASCULAR: Denies chest pain, palpitations, or edema. RESPIRATORY: Denies cough or dyspnea. GASTROINTESTINAL: Denies abdominal pain, nausea, vomiting, or diarrhea. GENITOURINARY: Denies dysuria or hematuria. SKIN: Denies rash or itching. MUSCULOSKELETAL: Denies back pain, joint pain, or myalgia. NEUROLOGIC: Denies headache, numbness, or weakness. PSYCHIATRIC: Denies anxiety or depression. All other systems reviewed are negative, except as documented in HPI. [facility] Past Medical History Medical History Allergies Anemia Cerebral infarction Depression Heartburn Herniated disc History of ectopic 1992 Hyperlipidemia Hypersomnia Hypertension Migraine Vertigo Surgical History Surgical History H/O dilation and curettage 1990 H/O tubal ligation 1997 Family History Family History Sibling Family history of osteoporosis Patient's sister is in good health Mother Patient's mother is in good health Family history of osteoarthritis Father Patient's father is in good health Family history of diabetes mellitus in first degree relative Grandparent Family history of osteoarthritis Diabetes mellitus Other Asthma Family history of allergic disorder Family history of migraine headaches Social History Social History Smoking status: Former smoker Tobacco type: cigarettes Second hand tobacco smoke exposure: No Smoking end date: 09/20/86 Alcohol intake: current Substance use: never Gender identity (if verbalized by the patient): Female Sexual Orientation (if Verbalized by the Patient): Straight or Heterosexual Comments At time of signature, agree with nursing past medical, surgical, social and family history. There is no relevant family history pertinent to the presenting complaint. Exam Narrative: GE
[2022-08-12 13:12] VITALS: BP 145/74; PULSE 98; RESP 18; TEMP 37.2; O2SAT 99
== END 2022-08-12 13:25 | disposition home or self-care (01) ==
PROVIDERS: Emergency Provider Nurse Practitioner Family; PCP Internal Medicine
DX: J01.90 Acute sinusitis, unspecified (principal); Z87.891 Personal history of nicotine dependence; E78.5 Hyperlipidemia, unspecified; I10 Essential (primary) hypertension; K21.9 Gastro-esophageal reflux disease without esophagitis; Z86.73 Personal history of transient ischemic attack (TIA), and cerebral infarction without residual deficits
CPT/HCPCS: 99213; G0463

== ENCOUNTER 2022-11-19 07:29 | Outpatient (CLI) | payer OTHER, SELFPAY ==
--- NOTE | ~2022-11-19 | MM_ITS ---
EXAMINATION: MM screening [facility] BI w ivette HISTORY: Screening mammogram TECHNIQUE: Craniocaudal and mediolateral oblique 3-D tomosynthesis images were obtained and synthetic 2-D images were generated. Bilateral rotated lateral CC views. CAD analysis was submitted and interp reted. COMPARISON: 09/25/2021, 08/23/2020, 08/02/2019 bilateral screening mammogram examinations BREAST PARENCHYMAL COMPOSITION: There are scattered areas of fibroglandular density. FINDINGS: Stable mild fibroglandular asymmetry. Occasional bilateral benign calcifications. There is no evidence of suspicious mass, calcification, or architectural distortion to suggest malignancy in e ither breast. There has been no suspicious interval change. IMPRESSION: 1. No mammographic evidence of malignancy. 2. Recommend routine screening mammography in one year. BI-RADS Category 2: Benign finding(s). Reviewed, dictated and finalized at location A. ENTARY PRINCIPAL
== END 2022-11-19 07:30 | disposition home or self-care (01) ==
PROVIDERS: PCP Internal Medicine; Visit Provider Obstetrics & Gynecology
DX: Z12.31 Encounter for screening mammogram for malignant neoplasm of breast (principal)
CPT/HCPCS: 77063; 77067

== ENCOUNTER 2022-11-20 07:44 | Outpatient (CLI) | payer OTHER, SELFPAY ==
[2022-11-20 08:43] LABS: Alanine Aminotransferase 38 U/L (6-35); Albumin Level 4.7 g/dL (3.5-5.1); Alkaline Phosphatase 63 U/L (38-126); Anion Gap 5 mmol/L (8-16); Aspartate Amino Transferase 30 U/L (14-36); Bilirubin,Total 0.4 mg/dL (0.2-1.3); Blood Urea Nitrogen 19 mg/dL (7-17); Calcium 10.3 mg/dL (8.4-10.2); Carbon Dioxide 31 mmol/L (22-30); Chloride 102 mmol/L (98-107); Cholesterol 272 mg/dL (0-200); Estimated Glomerular Filt Rate > 60; Glucose 103 mg/dL (65-110); HDL Direct 58 mg/dL; Potassium 4.5 mmol/L (3.4-5.0); Sodium 138 mmol/L (137-145); Triglycerides 163 mg/dL (<150)
[2022-11-20 08:53] LABS: LDL Cholesterol Direct 146 mg/dL
== END 2022-11-20 07:45 | disposition home or self-care (01) ==
LOC: ANHLAB 07:44
PROVIDERS: PCP Internal Medicine; Visit Provider Nurse Practitioner
DX: E78.5 Hyperlipidemia, unspecified (principal)
CPT/HCPCS: 36415; 80053; 80061

== ENCOUNTER 2023-02-12 10:23 | Outpatient (CLI) | payer OTHER, SELFPAY ==
--- NOTE | ~2023-02-12 | MR_ITS ---
MRI of the right shoulder Technique: Axial proton-density fat-sat images, coronal proton density fat-sat and T2 fat-sat images, and sagittal T1-weighted and T2 fat-sat images were acquired. Clinical History: Pain Findings: There is mild AC joint degenerative change, with minimal subacromial spur. Coracoclavicular , coracoacromial, and coracohumeral ligaments appear intact. There is severe tendinosis of the distal supraspinatus tendon, and mild to moderate tendinosis of the distal infraspinatus tendon. No partial or full-thickness tear of these tendons is seen. Subscapular is tendon is intact, with moderate to severe tendinosis. Tendon of the long head of the biceps is int act, with intra-articular tendinosis. Glenoid labrum is intact, without evidence of tear. No significant degenerative change of the glenohumeral joint noted. Inferior glenohumeral ligament is intact. There is prominent enthesopathic change at the greater tuberosity humerus at the supraspinat us tendon insertion. There is focal fluid distention of the subacromial/subdeltoid bursa. No muscle a trophy or edema. Impression: Extensive rotator cuff tendinosis, without partial or full-thickness tear. Subacromial/subdeltoid bursitis. Reviewed, dictated and finalized at [facility]. Impression: Extensive rotator cuff tendinosis, without partial or full-thickness tear. Subacromial/subdeltoid bursitis.
== END 2023-02-12 10:24 | disposition home or self-care (01) ==
PROVIDERS: PCP Internal Medicine; Visit Provider Nurse Practitioner
DX: M75.51 Bursitis of right shoulder (principal)
CPT/HCPCS: 73221

== ENCOUNTER 2023-05-12 08:00 | Outpatient (RCR) | payer OTHER, SELFPAY ==
--- NOTE | 2023-04-16 14:15 | PTOPEVAL1 ---
Assessment and note entered by Gisela Stover, PT Evaluation Information Assessment Status Evaluation Diagnosis Pain in right shoulder, oth. 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 Came home, went to chiropractor and iced thought the pain would resolve and it did not. Saw orthopeadic MD who gave her a shot. Since the shot pain is on and off but did improve some. If no improvement is to go back Can't lay on right side. Reported Pain Level Pain Score 5: Self Report Assessment PT Clinical Summary Pt presents with complaints of right shoulder pain that began a few months ao after caring for her mother. MRI findings show tendonosis of multpile tendons without tearing. Pt demo's abnormal alignment and postures, muscle tone bilat upper traps, decreased ROM, and (+) Hawkin's-Juan Alberto testing for impingement. Thus patient will greatly benefit from physical therapy to address deficits and improve function with less pain. Plan of Care Interventions Electrical Stimulation,Hot Pack/Cold Pack,Manual Therapy,Neuro Re-education,Patient/Caregiver Educati,Therapeutic Activities,Therapeutic Exercise,Ultrasound PT Services Indicated Yes Treatment Frequency and 2-3x weekly x 8 weeks Duration These treatments will address the objective and functional deficits as defined above. The patient will be advanced safely and appropriately in order for the patient to progress towards his/her prior level of function. Additional exercises will be introduced and as well as a comprehensive home exercise program upon discharge, if needed, ?to ensure carryover of functional gains achieved in the clinic. This treatment plan has been reviewed and agreement upon by the patient.
--- NOTE | 2023-04-16 14:15 | OPREHPOC ---
Outpatient Therapy Plan of Care This is a Multidisciplinary Plan of Care that may contain components documented by all disciplines (PT, OT, and ST.) PT Goal 1 Goal Pt will be independent in HEP Target Visit 16 PT Goal 2 Goal Pt will verbalize understanding of diagnosis and prognosis Target Visit 8 PT Problem 2 PT Problem #2 Pain PT Goal 1 Goal Pt will report greatest pain level at 3/10 or less Target Visit 8 PT Goal 2 Goal Pt will report resolution of pain Target Visit 16 PT Problem 3 PT Problem #3 Impaired Range of Motion PT Goal 1 Goal Pt will demo AROM shoulder abduction in frontal plane to 90 degrees Target Visit 8 PT Goal 2 Goal Pt will demo full AROM of RUE comapred to LUE Target Visit 16 PT Problem 4 PT Problem #4 Impaired Strength PT Goal 1 Goal Pt will demo strength of 4/5 in all tested planes PT Problem 5 PT Problem #5 Impaired Functional ADLs PT Goal 1 Goal Pt will report ability to work without pain Target Visit 10 PT Goal 2 Goal Pt will report ability to dress without pain
--- NOTE | 2023-05-12 16:06 | PTOPDC ---
Assessment and note entered by Gisela Stover, PT Assessment Status Discharge Diagnosis Pain in right shoulder, oth. shoulder leasions, right shoulder Onset 01/2023 Subjective Information Pt continues to have difficulty sleeping the most and also pain with reaching posterior to pull up pants. Cont to be unable to lay on right side. Attempted use of shoulder decompression pillow to allow laying on right side without putting pressure on shoulder, however this was not helpful. Patient feels no improvement and actually feels worse than when started. Has had an ergonomic evaluation of her work space and is supposed to get a keyboard pull out tomorrow. Reported Pain Level Pain Score 6: Self Report Assessment PT Clinical Summary Pt has attended therapy consistently for her right shoulder pain. She has been consistent in her home program and cryotherapy, has had her work space ergonomically evaluated, has tried both conservative and aggressive forms of physical therapy with soft tissue, stretching, and strengthening. Pain has worsened since evaluation with decreased strength testing due to pain. As patient has not made any progress and has actually worsened in discomfort and testing, is being referred back to orthopeadic specialist for further evaluation.
== END 2023-05-13 09:11 | disposition home or self-care (01) ==
LOC: ANHHIPT 08:00
PROVIDERS: PCP Internal Medicine; Visit Provider Orthopaedic Surgery
DX: M75.81 Other shoulder lesions, right shoulder (principal); M25.511 Pain in right shoulder
CPT/HCPCS: 97014; 97110; 97112; 97140; 97161; 97750; G0283

== ENCOUNTER 2023-07-03 10:05 | Emergency (ER) | payer OTHER, SELFPAY ==
--- NOTE | ~2023-07-03 | XR_ITS ---
EXAMINATION: XR humerus RT DATE: 07/03/2023 11:22 INDICATION: Right upper arm pain and swelling. TECHNIQUE: 2 views of right humerus were obtained. COMPARISON: Right shoulder radiographs 04/06/2023 FINDINGS: Bone alignment is normal. No fracture. There is mild osteoarthritis of glenohumeral joint a nd acromioclavicular joint. IMPRESSION: 1. Mild polyarticular osteoarthritis. Reviewed, dictated and finalized at location A.
--- NOTE | 2023-07-03 10:40 | ED.UPPEXIN ---
HPI - Extremity Injury (Upper) General Chief Complaint: Extremity Injury, Upper Stated Complaint: rt arm pain Time Seen by Provider: 07/03/23 10:40 Source: patient Mode of arrival: ambulatory Limitations: no limitations History of Present Illness HPI narrative: patient is a 63-year-old female who presents with pain in right biceps. Patient states she had cortisone injection last week for were bursitis and right shoulder. Patient states she went to bed and everything was fine swelling and pain to bicep. Patient has been taking ibuprofen with no relief. Denies any numbness, tingling, weakness to hand. does report tenderness on palpation swollen area. Denies any redness or warmth to area. Related Data Home Medications Medication Instructions Recorded Confirmed nortriptyline 10 mg capsule 20 mg PO HS 02/03/22 07/03/23 fremanezumab-vfrm 225 mg/1.5 mL 225 mg subcut MONTHLY 07/17/22 07/03/23 subcutaneous syringe (Ajovy Syringe) Allergies Allergy/AdvReac Type Severity Reaction Status Date / Time acetaminophen Allergy Mild RASH/SWELLI Verified 07/03/23 10:48 NG sumatriptan Allergy Mild HEART Verified 07/03/23 10:48 PALPITATIONS topiramate Allergy Mild HEART Verified 07/03/23 10:48 PALPITATION dicyclomine Allergy Unknown Chest Pain Verified 07/03/23 10:48 levofloxacin Allergy Unknown Chest Pain Verified 07/03/23 10:48 hydrocodone Allergy Rash,SWELLI Verified 07/03/23 10:48 NG triamterene Allergy Unknown Verified 07/03/23 10:48 tramadol AdvReac Unknown CRAWLING Verified 07/03/23 10:48 OUT OF SKIN Contrast Media Allergy Mild Hives Uncoded 07/03/23 10:48 Review of Systems Review of Systems: All systems reviewed & are unremarkable except as noted in HPI and below Constitutional: Constitutional: Denies body ache(s), Denies chills, Denies fatigue, Denies fever(s), Denies headache(s), Denies malaise and Denies weakness Eyes: Eyes: Denies blurry vision, Denies irritation and Denies loss of vision ENT: Denies otalgia, Denies headache(s), Denies nasal discharge, Denies sinus pain and Denies sore throat Cardiovascular: Cardiovascular: Denies chest pain, Denies irregular heart rhythm and Denies dyspnea Respiratory: Respiratory: Denies dyspnea Gastrointestinal: Gastrointestinal: Denies abdominal pain, Denies melena, Denies hematochezia, Denies diarrhea, Denies nausea and Denies vomiting Musculoskeletal: Musculoskeletal: Denies back pain, Denies myalgias, Denies arthralgias and Reports muscle cramps Integumentary/Breasts: Skin/Breast: Denies pruritus and Denies rash Neurologic: Denies headache(s), Denies loss of vision and Denies weakness Psychiatric: Psychiatric: Reports no additional psychiatric complaints Endocrine: Endocrine: Denies fatigue PMF Past Medical History Medical History Allergies Anemia Cerebral infarction Cervical vertebral fusion (~2010) Depression Heartburn Herniated disc History of ectopic 1992 Hyperlipidemia Hypersomnia Hypertension Migraine Vertigo Surgical History Surgical History H/O dilation and curettage 1990 H/O tubal ligation 1997 History of lumbar fusion (~1999) Family History Family History Sibling Family history of osteoporosis Patient's sister is in good health Mother Patient's mother is in good health Family history of osteoarthritis Father Patient's father is in good health Family history of diabetes mellitus in first degree relative Grandparent Family history of osteoarthritis Diabetes mellitus Other Asthma Family history of allergic disorder Family history of migraine headaches Social History Social History Smoking status: Former smoker Tobacco type: cigarettes
[2023-07-03 10:44] VITALS: BP 150/98; PULSE 95; RESP 18; TEMP 36.7; O2SAT 99
== END 2023-07-03 11:41 | disposition short-term general hospital (02) ==
PROVIDERS: Emergency Provider Nurse Practitioner Family; PCP Internal Medicine
DX: R22.31 Localized swelling, mass and lump, right upper limb (principal); Z87.891 Personal history of nicotine dependence; E78.5 Hyperlipidemia, unspecified; I10 Essential (primary) hypertension; F32.A Depression, unspecified
CPT/HCPCS: 73060; 99213; G0463

== ENCOUNTER 2023-07-03 11:56 | Emergency (ER) | payer OTHER, SELFPAY ==
--- NOTE | ~2023-07-03 | XR_ITS ---
EXAMINATION: XR humerus RT DATE: 07/03/2023 12:56 INDICATION: Right upper limb nontraumatic lump. TECHNIQUE: 2 views of right humerus were obtained. COMPARISON: Right humerus radiographs 11:21 AM FINDINGS: Bone alignment is normal. No fracture. There is mild osteoarthritis of glenohumeral joint a nd acromioclavicular joint. IMPRESSION: 1. Mild polyarticular osteoarthritis. Reviewed, dictated and finalized at location A.
[2023-07-03 11:58] VITALS: BP 160/87; PULSE 100; RESP 16; TEMP 36.9; O2SAT 100
--- NOTE | 2023-07-03 12:19 | ED.UPPEXIN ---
HPI - Extremity Injury (Upper) General Chief Complaint: Extremity Injury, Upper Stated Complaint: right shoulder pain Time Seen by Provider: 07/03/23 12:15 Source: patient Mode of arrival: ambulatory Limitations: no limitations History of Present Illness HPI narrative: Patient is status post cortisone injection right shoulder posteriorly 7 days ago. Yesterday felt soreness at the biceps anteriorly, woke up this morning with a lump at the same area. Tender to touch, slightly bruised. Worse with flexion and extension of the biceps. She denies any trauma. Related Data Home Medications Medication Instructions Recorded Confirmed nortriptyline 10 mg capsule 20 mg PO HS 02/03/22 07/03/23 fremanezumab-vfrm 225 mg/1.5 mL 225 mg subcut MONTHLY 07/17/22 07/03/23 subcutaneous syringe (Ajovy Syringe) Allergies Allergy/AdvReac Type Severity Reaction Status Date / Time acetaminophen Allergy Mild RASH/SWELLI Verified 07/03/23 10:48 NG sumatriptan Allergy Mild HEART Verified 07/03/23 10:48 PALPITATIONS topiramate Allergy Mild HEART Verified 07/03/23 10:48 PALPITATION dicyclomine Allergy Unknown Chest Pain Verified 07/03/23 10:48 Iodinated Contrast Media Allergy Unknown Hives Verified 07/03/23 12:52 levofloxacin Allergy Unknown Chest Pain Verified 07/03/23 10:48 hydrocodone Allergy Rash,SWELLI Verified 07/03/23 10:48 NG triamterene Allergy Unknown Verified 07/03/23 10:48 tramadol AdvReac Unknown CRAWLING Verified 07/03/23 10:48 OUT OF SKIN Review of Systems Review of Systems: All systems reviewed & are unremarkable except as noted in HPI and below PMFSH Past Medical History Medical History Allergies Anemia Cerebral infarction Cervical vertebral fusion (~2010) Depression Heartburn Herniated disc History of ectopic 1992 Hyperlipidemia Hypersomnia Hypertension Migraine Vertigo Surgical History Surgical History H/O dilation and curettage 1990 H/O tubal ligation BL 1997 History of lumbar fusion (~1999) Family History Family History Sibling Family history of osteoporosis Patient's sister is in good health Mother Patient's mother is in good health Family history of osteoarthritis Father Patient's father is in good health Family history of diabetes mellitus in first degree relative Grandparent Family history of osteoarthritis Diabetes mellitus Other Asthma Family history of allergic disorder Family history of migraine headaches Social History Social History Smoking status: Former smoker Tobacco type: cigarettes Second hand tobacco smoke exposure: No Smoking end date: 09/20/86 Alcohol intake: current Drinks per week: 3 Substance use: never Lack of Transportation: No Lack of Food: Never True Current Housing: I Have Housing Concerned About Future Housing: No Difficulty Paying Gas/Electric Bills: No Difficulty Paying for Meds: No Currently Unemployed: No Education: Associate Degree Difficulty w/ Childcare or Family Care: No Living arrangements: with family Occupation/Education: occupation Gender identity (if verbalized by the patient): Female Sexual Orientation (if Verbalized by the Patient): Straight or Heterosexual Exam Narrative: General appearance: Well-developed, well-nourished Skin: Normal color Head: Normocephalic, nontraumatic Neck: Supple, nontender Chest and respiratory: Airway patent, no respiratory distress, no accessory muscle use Heart: Regular rate/rhythm Vascular: Normal peripheral pulses, normal capillary refill. Musculoskeletal: Right arm showed 3 x 2 cm lump anteriorly, tender to touch, slightly bruised, worse with flexion and extension of the biceps. Neurologic
[2023-07-03] MEDS: IBUPROFEN 600 MG TABLET PO (13:03)
[2023-07-03 13:12] VITALS: BP 142/80; PULSE 78; RESP 16; TEMP 36.8; O2SAT 98
== END 2023-07-03 13:13 | disposition home or self-care (01) ==
PROVIDERS: Emergency Provider Emergency Medicine; PCP Internal Medicine
DX: M79.621 Pain in right upper arm (principal); E78.5 Hyperlipidemia, unspecified; I10 Essential (primary) hypertension; R12 Heartburn; Z98.1 Arthrodesis status; Z86.2 Personal history of diseases of the blood and blood-forming organs and certain disorders involving the immune mechanism; Z87.891 Personal history of nicotine dependence; M19.011 Primary osteoarthritis, right shoulder
CPT/HCPCS: 73060; 99283; A9270

== ENCOUNTER 2023-07-09 10:07 | Outpatient (CLI) | payer OTHER, SELFPAY ==
[2023-07-09 10:26] LABS: Basophils Percent Auto 0.3 % (0.2-1.2); Eosinophils Absolute Auto 0.1 K/mm3 (0-0.3); Eosinophils Percent Auto 1.6 % (0-4.4); Hemoglobin 13.7 g/dL (12.0-15.0); Immature Granulocyte Absolute 0.03 K/mm3 (0.00-0.031); Immature Granulocyte Percent A 0.4 % (0-0.5); Lymphocytes Absolute Auto 1.64 K/mm3 (0.9-3.2); Lymphocytes Percent Auto 23.6 % (18.3-44.2); Mean Corpuscular HGB Conc 31.9 g/dl (32-36); Mean Corpuscular Hemoglobin 30.9 pg (26-34); Mean Corpuscular Volume 97.1 fl (80-100); Mean Platelet Volume 9.9 fl (7.4-10.4); Monocytes Absolute Auto 0.4 K/mm3 (0.1-0.6); Monocytes Percent Auto 6.3 % (2.6-8.5); Neutrophils Absolute Auto 4.7 K/mm3 (1.3-6.7); Neutrophils Percent Auto 67.8 % (45.5-73.1); Platelet Count Result 359 k/mm3 (150-375); Red Blood Count 4.43 M/mm3 (4.2-5.4); Red Cell Distribution Width 13.4 % (11.5-14.5)
[2023-07-09 10:36] LABS: Alanine Aminotransferase 26 U/L (6-35); Albumin Level 4.7 g/dL (3.5-5.1); Alkaline Phosphatase 60 U/L (38-126); Anion Gap 5 mmol/L (8-16); Aspartate Amino Transferase 24 U/L (14-36); Bilirubin,Total 0.5 mg/dL (0.2-1.3); Blood Urea Nitrogen 16 mg/dL (7-17); Calcium 9.3 mg/dL (8.4-10.2); Carbon Dioxide 31 mmol/L (22-30); Chloride 105 mmol/L (98-107); Cholesterol 284 mg/dL (0-200); Estimated Glomerular Filt Rate > 60; Glucose 102 mg/dL (65-110); HDL Direct 76 mg/dL; Potassium 3.9 mmol/L (3.4-5.0); Sodium 141 mmol/L (137-145); Triglycerides 198 mg/dL (<150)
[2023-07-09 10:47] LABS: LDL Cholesterol Direct 144 mg/dL
[2023-07-09 11:16] LABS: Vitamin D 25 Hydroxy 71.6 ng/mL
== END 2023-07-09 10:08 | disposition home or self-care (01) ==
PROVIDERS: PCP Internal Medicine; Visit Provider Nurse Practitioner
DX: M81.0 Age-related osteoporosis without current pathological fracture (principal); E78.5 Hyperlipidemia, unspecified
CPT/HCPCS: 36415; 80053; 80061; 82306; 85025

== ENCOUNTER 2023-08-03 08:00 | Outpatient (RCR) | payer OTHER, SELFPAY ==
--- NOTE | 2023-07-09 09:28 | PTOPEVAL1 ---
Assessment and note entered by Jose Driscoll, PT Evaluation Information Assessment Status Evaluation Diagnosis Right shoulder lesions, Right shoulder pain, shoulder weakness Onset January 10 Subjective Information Reports that she had shoulder pain for a while and noticed a hematoma approximately 1 week ago. 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 Had an MRI in January of 2023. Reaching behind back and over head are the most difficult. She is having a lot of trouble just getting dressed in the morning. Reported Pain Level Pain Score 5: Self Report Assessment PT Clinical Summary Patient presents with signs and symptoms consistent with shoulder tendinosis and impingement type symptoms. Needs postural reinforcement and capsular mobility as we assess reaction to cortisone injection to determine level of structural compromise in rotator cuff and subacromial. Plan of Care Interventions Gait Training,Hot Pack/Cold Pack,Manual Therapy, Neuro Re-education,Therapeutic Activities, Therapeutic Exercise PT Services Indicated Yes Treatment Frequency and 1-2x/week for 4 weeks Duration These treatments will address the objective and functional deficits as defined above. The patient will be advanced safely and appropriately in order for the patient to progress towards his/her prior level of function. Additional exercises will be introduced and as well as a comprehensive home exercise program upon discharge, if needed, ?to ensure carryover of functional gains achieved in the clinic. This treatment plan has been reviewed and agreement upon by the patient.
--- NOTE | 2023-07-09 09:30 | OPREHPOC ---
Outpatient Therapy Plan of Care This is a Multidisciplinary Plan of Care that may contain components documented by all disciplines (PT, OT, and ST.) PT Problem 1 PT Problem #1 Knowledge Deficit PT Goal 1 Goal Independent with posturla strengthening program Target Visit 4 PT Problem 2 PT Problem #2 Pain PT Goal 1 Goal Report no pain greater than 2/10 with dressing in AM Target Visit 4 PT Problem 3 PT Problem #3 Impaired Range of Motion PT Goal 1 Goal Demonstrate 60 degrees on R shoulder internal rotation to assist with dressing and hygiene function Target Visit 8 PT Goal 2 Goal Improve R shoulder flexion ROM to 165 degrees to assist with functional active reach into cabinets in home without pain Target Visit 8 PT Problem 4 PT Problem #4 Impaired Strength PT Goal 1 Goal Improve R shoulder flexion strength to 4+/5 to assist with lifting of objects and self care Target Visit 8
--- NOTE | 2023-07-23 13:20 | PCPTNOTE ---
The patient treatment was not able to be completed on 07/21/23 due to staffing shortage. Will plan to continue treatment per plan of care.
--- NOTE | 2023-08-03 09:12 | PTOPDC ---
Assessment and note entered by Gisela Stover, PT Assessment Status Discharge Diagnosis Right shoulder lesions, Right shoulder pain, shoulder weakness Onset January 10 Subjective Information As long as is conscious of the shoulder blade placement is better with dressing. Tries to balance use of UEs. Is able to lay on right side some now. Is doing better reaching overhead. Still having shoulder pain at work. Has to stop more often because of pain. Work is ordering mouse pad but is currently on back order. Has tried two previous pads but they didn't work. Reports feeling 80% back to normal. Reported Pain Level Pain Score 3: Self Report Assessment PT Clinical Summary Pt has attended therapy previously for right shoulder, had a second steroid shot and returned to therapy for right shoulder pain. While she reports improvements in pain overall, she continues to have significant discomfort with resistance testing. She also continues to have pain while at work though her work is ordering new ergonomic equipment to assist in her work position. She shows improved postures and awareness of scapular motion in order to decompress the joint, demo's appropriate passive ROM and capsular motion. She appears to have met max benefit for therapy at this time and is being referred back to her surgeon for further options to address her shoulder pain.
== END 2023-08-10 14:20 | disposition home or self-care (01) ==
LOC: ANHHIPT 08:00
PROVIDERS: PCP Internal Medicine; Visit Provider Orthopaedic Surgery
DX: M75.81 Other shoulder lesions, right shoulder (principal); M25.511 Pain in right shoulder
CPT/HCPCS: 97014; 97110; 97140; 97161; 97750; G0283

== ENCOUNTER 2023-09-17 14:50 | Emergency (ER) | payer OTHER, SELFPAY ==
[2023-09-17 15:20] VITALS: BP 161/88; PULSE 89; RESP 16; TEMP 36.4; O2SAT 100
--- NOTE | 2023-09-17 15:42 | ED.URI ---
HPI - URI/Sore Throat General Chief Complaint: Upper Respiratory Infection Stated Complaint: Sinus Time Seen by Provider: 09/17/23 15:40 Source: patient Mode of arrival: ambulatory Limitations: no limitations History of Present Illness HPI Narrative: Jaclyn is a 63-year-old female patient presenting to the clinic today with complaints of possible sinus infection x1 0.5 weeks. She reports she has got a lot of sinus pressure and drainage. Is causing her to have a headache. Denies any chest pain or shortness of breath. MD elicited complaint: sore throat and nasal congestion Related Data Home Medications Medication Instructions Recorded Confirmed nortriptyline 10 mg capsule 20 mg PO HS 02/03/22 09/17/23 fremanezumab-vfrm 225 mg/1.5 mL 225 mg subcut MONTHLY 07/17/22 09/17/23 subcutaneous syringe (Ajovy Syringe) aspirin 81 mg tablet,delayed 81 mg PO DAILY 07/14/23 09/17/23 release (Adult Aspirin Regimen) cholecalciferol (vitamin D3) 25 25 mcg PO DAILY 07/14/23 09/17/23 mcg (1,000 unit) capsule Allergies Allergy/AdvReac Type Severity Reaction Status Date / Time acetaminophen Allergy Mild RASH/SWELLI Verified 09/17/23 15:25 NG sumatriptan Allergy Mild HEART Verified 09/17/23 15:25 PALPITATIONS topiramate Allergy Mild HEART Verified 09/17/23 15:25 PALPITATION dicyclomine Allergy Unknown Chest Pain Verified 09/17/23 15:25 Iodinated Contrast Media Allergy Unknown Hives Verified 09/17/23 15:25 levofloxacin Allergy Unknown Chest Pain Verified 09/17/23 15:25 hydrocodone Allergy Rash,SWELLI Verified 09/17/23 15:25 NG triamterene Allergy Unknown Verified 09/17/23 15:25 tramadol AdvReac Unknown CRAWLING Verified 09/17/23 15:25 OUT OF SKIN Review of Systems Review of Systems: Pertinent positives per HPI. Patient denies any fever, chills, rash, headache, visual changes, dizziness, shortness of breath, chest pain, palpitations, nausea, vomiting, diarrhea, constipation, abdominal pain, or any urinary issues. [facility] Past Medical History Medical History Allergies Anemia Cerebral infarction Cervical vertebral fusion (~2010) Depression Heartburn Herniated disc History of ectopic 1992 Hyperlipidemia Hypersomnia Hypertension Migraine Vertigo Surgical History Surgical History H/O dilation and curettage 1990 H/O tubal ligation BL 1997 History of lumbar fusion (~1999) Family History Family History Sibling Family history of osteoporosis Patient's sister is in good health Mother Patient's mother is in good health Family history of osteoarthritis Father Patient's father is in good health Family history of diabetes mellitus in first degree relative Grandparent Family history of osteoarthritis Diabetes mellitus Other Asthma Family history of allergic disorder Family history of migraine headaches Social History Social History Smoking status: Former smoker Tobacco type: cigarettes Second hand tobacco smoke exposure: No Smoking end date: 09/20/86 Alcohol intake: current Drinks per week: 3 Substance use: never Lack of Transportation: No Lack of Food: Never True Current Housing: I Have Housing Concerned About Future Housing: No Difficulty Paying Gas/Electric Bills: No Difficulty Paying for Meds: No Currently Unemployed: No Education: Associate Degree Difficulty w/ Childcare or Family Care: No Living arrangements: with family Occupation/Education: occupation Gender identity (if verbalized by the patient): Female Sexual Orientation (if Verbalized by the Patient): Straight or Heterosexual Comments At the time of my signature, I reviewed and agree with the nursing past medical
== END 2023-09-17 15:47 | disposition home or self-care (01) ==
PROVIDERS: Emergency Provider Nurse Practitioner Family; PCP Internal Medicine
DX: J01.90 Acute sinusitis, unspecified (principal); Z87.891 Personal history of nicotine dependence; R12 Heartburn; E78.5 Hyperlipidemia, unspecified; I10 Essential (primary) hypertension; F32.A Depression, unspecified; Z86.73 Personal history of transient ischemic attack (TIA), and cerebral infarction without residual deficits; Z79.82 Long term (current) use of aspirin
CPT/HCPCS: 99213; G0463

== ENCOUNTER 2023-10-14 08:15 | Outpatient (RCR) | payer OTHER, SELFPAY ==
--- NOTE | 2023-09-15 09:06 | PTOPEVAL1 ---
Assessment and note entered by Jose Driscoll, PT Evaluation Information Assessment Status Evaluation Diagnosis Right Shoulder Pain, Right shoulder lesions Onset November 2022 Subjective Information Reports that she had a shoulder hematoma which was hiding. Was updated that she is having a small tear identified by the MD. Denies radicular pain. She is R handed. 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 She is not sleeping well. Typically a R side sleeper. Reported Pain Level Pain Score 7: Self Report Assessment PT Clinical Summary Patient presents with signs and symptoms consistent with impingement with history of muscle trauma including rotator cuff and biceps. Patient will benefit from skilled therapy to address these deficits for improved functional use of dominant shoulder and improve gross functional shoulder strength. Plan of Care Interventions Electrical Stimulation,Hot Pack/Cold Pack,Manual Therapy,Neuro Re-education,Therapeutic Activities, Therapeutic Exercise PT Services Indicated Yes Treatment Frequency and 2x/week for 8 visits Duration These treatments will address the objective and functional deficits as defined above. The patient will be advanced safely and appropriately in order for the patient to progress towards his/her prior level of function. Additional exercises will be introduced and as well as a comprehensive home exercise program upon discharge, if needed, ?to ensure carryover of functional gains achieved in the clinic. This treatment plan has been reviewed and agreement upon by the patient.
--- NOTE | 2023-09-15 09:06 | OPREHPOC ---
Outpatient Therapy Plan of Care This is a Multidisciplinary Plan of Care that may contain components documented by all disciplines (PT, OT, and ST.) PT Problem 1 PT Problem #1 Knowledge Deficit PT Goal 1 Goal Independent with HEP Target Visit 4 PT Problem 2 PT Problem #2 Pain PT Goal 1 Goal Report no pain greater than 1/10 with pressure to improve sleeping Target Visit 4 PT Problem 3 PT Problem #3 Impaired Range of Motion PT Goal 1 Goal Achieve 170 degrees of R shoulder flexion ROM to improve active reach Target Visit 8 PT Problem 4 PT Problem #4 Impaired Strength PT Goal 1 Goal Improve R shoulder flexion strength to 4+/5 to improve functional lifting PT Goal 2 Goal Improve R biceps loading strength to 5/5 pain free for functional carrying and lifting ability Target Visit 8
--- NOTE | 2023-10-14 09:13 | PTOPDC ---
Assessment and note entered by Matty Infante Evaluation Information Assessment Status Discharge Diagnosis right shoulder pain, right shoulder lesion Onset November 2022 Subjective Information Pt. reports she is doing better. She reports that she still has pain at 3/10 described in the biceps. She denies any pain at the shoulder. She still expresses discouragement in regards to the deformity in the biceps. She expresses no difficulty with all IADL's. she states that she would like to follow up with her doctor regarding remaining pain. Reported Pain Level Pain Score 3: Self Report Assessment PT Clinical Summary Pt. presents with no limitation in regards to ROM and strength. She continues to present with deformity of the biceps musculature and explained to the pt. pathology of biceps tendon rupture and presentation. At this time she is encouraged to continue with her HEP and will follow up with her doctor if pain persist. Plan of Care PT Services Indicated D/C from PT to an independent HEP.
== END 2023-10-14 10:17 | disposition home or self-care (01) ==
LOC: ANHPT 08:15
PROVIDERS: PCP Internal Medicine; Visit Provider Orthopaedic Surgery
DX: M25.511 Pain in right shoulder (principal); M75.81 Other shoulder lesions, right shoulder
CPT/HCPCS: 97014; 97035; 97110; 97140; 97161; 97530; G0283

== ENCOUNTER 2024-01-28 07:43 | Outpatient (CLI) | payer OTHER, SELFPAY ==
--- NOTE | ~2024-01-28 | MM_ITS ---
EXAMINATION: MM screening barbra BI w ivette HISTORY: Screening mammogram TECHNIQUE: Craniocaudal and mediolateral oblique 3-D tomosynthesis images were obtained and synthetic 2-D images were generated. CAD analysis was submitted and interpreted. COMPARISON: 11/19/2022, 09/25/2021 bilateral screening mammogram examinations BREAST PARENCHYMAL COMPOSITION: There are scattered areas of fibroglandular density. FINDINGS: Stable mild fibroglandular asymmetry and occasional benign calcifications are again noted. There is no evidence of suspicious mass, calcification, or architectural distortion to suggest malign shelly in either breast. There has been no suspicious interval change. IMPRESSION: 1. No mammographic evidence of malignancy. 2. Recommend routine screening mammography in one year. BI-RADS Category 2: Benign finding(s). Reviewed, dictated and finalized at location B.
== END 2024-01-28 07:44 | disposition home or self-care (01) ==
LOC: ANHIMG 07:46
PROVIDERS: PCP Internal Medicine; Visit Provider Obstetrics & Gynecology
DX: Z12.31 Encounter for screening mammogram for malignant neoplasm of breast (principal)
CPT/HCPCS: 77063; 77067

== ENCOUNTER 2024-02-08 15:45 | Emergency (ER) | payer OTHER, SELFPAY ==
--- NOTE | 2024-02-08 15:48 | ED.URI ---
HPI - URI/Sore Throat General Chief Complaint: Upper Respiratory Infection Stated Complaint: sinus infection Time Seen by Provider: 02/08/24 16:07 Source: patient and RN notes reviewed Mode of arrival: ambulatory Limitations: no limitations History of Present Illness HPI Narrative: 64-year-old female presents with concern for sinus infection. She reports chronic allergy problems. Reports more than 1 week history of sinus congestion, inflammation, pain, drainage. Reports she has tried multiple [id number] medications without relief. She denies any recent fever. She reports cough MD elicited complaint: nasal congestion and sinus pain Related Data Home Medications Medication Instructions Recorded Confirmed nortriptyline 10 mg capsule 20 mg PO HS 02/03/22 02/08/24 fremanezumab-vfrm 225 mg/1.5 mL 225 mg subcut MONTHLY 07/17/22 02/08/24 subcutaneous syringe (Ajovy Syringe) aspirin 81 mg tablet,delayed 81 mg PO DAILY 07/14/23 02/08/24 release (Adult Aspirin Regimen) cholecalciferol (vitamin D3) 25 25 mcg PO DAILY 07/14/23 02/08/24 mcg (1,000 unit) capsule ubrogepant 50 mg tablet (Ubrelvy) 50 mg PO PRN PRN Migraine Headache 02/08/24 02/08/24 Allergies Allergy/AdvReac Type Severity Reaction Status Date / Time dicyclomine AdvReac Intermediate Palpitation Verified 02/08/24 15:50 s levofloxacin AdvReac Intermediate Chest Pain Verified 02/08/24 15:50 sumatriptan AdvReac Intermediate HEART Verified 02/08/24 15:50 PALPITATIONS topiramate AdvReac Intermediate HEART Verified 02/08/24 15:50 PALPITATION tramadol AdvReac Intermediate Jittery Verified 02/08/24 15:50 acetaminophen AdvReac Mild RASH/SWELLI Verified 02/08/24 15:50 NG hydrocodone AdvReac Mild Rash,SWELLI Verified 02/08/24 15:50 NG Iodinated Contrast Media AdvReac Mild Hives Verified 02/08/24 15:50 triamterene AdvReac Mild Hives Verified 02/08/24 15:50 Review of Systems Review of Systems: CONSTITUTIONAL: Denies malaise, chills, sweats, or fever. EYES: Denies visual changes, redness, or discharge. ENT: Reports rhinorrhea, congestion, sinus pain, otalgia CARDIOVASCULAR: Denies chest pain, palpitations, or edema. RESPIRATORY: Reports cough. Denies dyspnea. GASTROINTESTINAL: Denies abdominal pain, nausea, vomiting, diarrhea SKIN: Denies rash or itching. MUSCULOSKELETAL: Denies myalgia. NEUROLOGIC: Denies headache. All systems reviewed & are unremarkable except as noted in HPI and below PMFSH Past Medical History Medical History Allergies Anemia Cerebral infarction Cervical vertebral fusion (~2010) Depression Heartburn Herniated disc History of ectopic 1992 Hyperlipidemia Hypersomnia Hypertension Migraine Vertigo Surgical History Surgical History H/O dilation and curettage 1990 H/O tubal ligation BL 1997 History of lumbar fusion (~1999) Family History Family History Sibling Family history of osteoporosis Patient's sister is in good health Mother Patient's mother is in good health Family history of osteoarthritis Father Patient's father is in good health Family history of diabetes mellitus in first degree relative Grandparent Family history of osteoarthritis Diabetes mellitus Other Asthma Family history of allergic disorder Family history of migraine headaches Social History Social History Smoking status: Former smoker Tobacco type: cigarettes Second hand tobacco smoke exposure: No Smoking end date: 09/20/86 Alcohol intake: current Drinks per week: 3 Substance use: never Lack of Transportation: No Lack of Food: Never True Current Housing: I Have Housing Concerned About Future Housing: No Difficulty Paying Gas/Electric B
[2024-02-08 15:55] VITALS: BP 156/82; PULSE 95; RESP 16; TEMP 36.6; O2SAT 97
== END 2024-02-08 16:18 | disposition home or self-care (01) ==
PROVIDERS: Emergency Provider Nurse Practitioner; PCP Internal Medicine
DX: J01.90 Acute sinusitis, unspecified (principal); Z87.891 Personal history of nicotine dependence; E78.5 Hyperlipidemia, unspecified; I10 Essential (primary) hypertension; R12 Heartburn; Z79.82 Long term (current) use of aspirin; Z86.73 Personal history of transient ischemic attack (TIA), and cerebral infarction without residual deficits
CPT/HCPCS: 99213; G0463

== ENCOUNTER 2024-09-16 09:44 | Emergency (ER) | payer OTHER, SELFPAY ==
--- NOTE | ~2024-09-16 | CT_ITS ---
EXAMINATION: CT cervical spine wo con DATE: 09/16/2024 13:58 INDICATION: Neck pain. Cervical radiculopathy. TECHNIQUE: Computed tomography (CT) of the cervical spine was performed without intravenous contrast. Automated exposure control and iterative reconstruction technique were employed. The dose-length pro duct was 183.37 mGy-cm. COMPARISON: MRI dated 03/17/2012 FINDINGS: 6 degrees cervicothoracic levocurvature. Sagittal alignment is normal. C4-C7 anterior spinal fusion w ith interbody bone graft cages and anterior plate and screw fixation. Unfused vertebral body heights are normal. No fracture. Moderate disc height loss at C7-T1. Mild disc height loss at C3-C4 and T2-T3 . 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 Severe facet oste oarthritis on the right at C3-C4, bilaterally at T2-T3 and right at T3-T4. An additional mild to mode rate facet osteoarthritis throughout the remainder of the cervical spine with developing fusion acros s the facet joints on the bilaterally at C4-C5 and on the left at C6-C7. Disc bulge contributing to m ild central canal stenosis at C3-C4. Multilevel cervical neural foraminal stenosis, moderate severity on the right at C4-C5 and mild at the remaining cervical levels. Cervical soft tissues are unremarka ble. Visualized apices of lungs are clear. IMPRESSION: 1. Moderate cervical spondylosis with C4-C7 instrumented anterior spinal fusion. Reviewed, dictated and finalized at location A. TRIC ORGAN INSPECTOR AND REPAIRER IMPRESSION: 1. Moderate cervical spondylosis with C4-C7 instrumented anterior spinal fusion .
[2024-09-16 10:23] VITALS: BP 153/58; PULSE 68; RESP 14; TEMP 36.8; O2SAT 100
[2024-09-16 12:38] VITALS: BP 159/96; PULSE 97; RESP 12; TEMP 36.8; O2SAT 100
--- NOTE | 2024-09-16 13:44 | ED_ITS ---
HPI - General Adult General Chief complaint: Neck Pain/Injury Stated complaint: neck pain radiates down left arm Time Seen by Provider: 09/16/24 13:00 History of Present Illness HPI narrative: 64-year-old female presented emergency department for evaluation for left-sided neck pain. Patient states he has had left-sided neck pain for approximately 6 days now. Patient did have follow-up with her chiropractor and states that the pain had been on the right but after chiropractor the right side felt improved but after presenting her chiropractor again on Wednesday she had worsening pain on the left. Patient does report tightness of the left shoulder and pain that radiates down the left arm. Patient states she does have some associated weakness of the left arm. Patient denies any change in bowel or bladder habits. Patient has been taking Tylenol and ibuprofen for pain control. Related Data Allergies Allergy/AdvReac Type Severity Reaction Status Date / Time levofloxacin (From Levaquin) Allergy Mild Rash Verified 09/16/24 13:10 topiramate (From Topamax) Allergy Mild Palpitation Verified 09/16/24 13:10 s acetaminophen (From Vicodin) Allergy Rash Verified 09/16/24 13:10 dicyclomine Allergy Blurry Verified 09/16/24 13:10 Vision hydrocodone (From Vicodin) Allergy Rash Verified 09/16/24 13:10 ketorolac Allergy Chest Pain Verified 09/16/24 13:10 peanut Allergy Headache Verified 09/16/24 13:10 propranolol Allergy Chest Pain Verified 09/16/24 13:10 sumatriptan (From Imitrex) Allergy Palpitation Verified 09/16/24 13:10 s triamterene AdvReac weird Verified 09/16/24 13:10 feeling Review of Systems Review of Systems: All systems reviewed & are unremarkable except as noted in HPI and below Exam Narrative: APPEARANCE: Uncomfortable appearing HEAD: normocephalic, atraumatic. EYES: PERRLA/EOMI, conjunctivae clear. NOSE: Normal no drainage EARS:TMS clear with good light reflex. THROAT: Pharynx clear, no exudate. NECK: Supple. No adenopathy, no masses. RESPIRATORY: Airway patent, respirations nonlabored. Clear to auscultation bilaterally, no rales, rhonchi, wheezing. CARDIOVASCULAR: Regular rate and rhythm without murmurs rubs or gallops. ABDOMINAL: Soft, nontender, nondistended, normal bowel sounds MUSCULOSKELETAL: Tenderness to left trapezius NEURO: Alert. Cranial nerves II through XII intact. Grossly intact with strong metallic yarn slitting machine operator on left SKIN: Warm, dry. Normal Color Course Vital Signs Vital signs: Vital Signs Temperature 98.2 F 09/16/24 10:23 Pulse Rate 68 09/16/24 10:23 Respiratory Rate 14 09/16/24 10:23 Blood Pressure 153/58 H 09/16/24 10:23 Pulse Oximetry 100 09/16/24 10:23 Temperature 98.2 F 09/16/24 12:38 Pulse Rate 97 09/16/24 12:38 Respiratory Rate 12 09/16/24 12:38 Blood Pressure 159/96 H 09/16/24 12:38 Pulse Oximetry 100 09/16/24 12:38 Medical Decision Making MDM Narrative Medical decision making narrative: 64-year-old female presented emergency department for evaluation for left lateral neck and left shoulder pain with intermittent tingling down left hand. Suspect cervical radiculopathy. Patient was started on Medrol Dosepak and encouraged to have close follow-up with primary care physician for outpatient MRI as needed. All questions concerns were addressed. Patient was well- appearing at time of discharge. Differential Diagnosis Differential Diagnosis: Torticollis, trapezius strain, right neck, cervical spine injury, cervical radiculopathy Vital Signs Vital Signs: Vital Signs Temperature 98.2 F 09/16/24 10:23 Pulse Rate 68 09/16/24 10:23 Respiratory Rate 14 09/16/24 10:23 Blood Pressure 153/58 H 09/16/24 10:23 Pulse Oximetry 100 09/16/24 10:23 Temperature 98.2 F 09/16/24 12:38 Pulse Rate 97 09/16/24 12:38 Respiratory Rate 12 09/16/24 12:38 Blood Pressure 159/96 H 09/16/24 12:38 Pulse Oximetry 100 09/16/24 12:38 Lab Data Lab results reviewed: Yes I reviewed the patient's lab results. Imaging Data Radiologist's impression: Impressions Cervical Spine CT 09/16/24 14:06 IMPRESSION: 1. Moderate cervical spondylosis with C4-C7 instrumented anterior spinal fusion. Discharge Plan Discharge Clinical Impression: Cervical radiculopathy Patient Disposition: Home, Self-Care Condition: Stable Instructions: Antibiotic Form, Cervical Radiculopathy (ED) Additional Instructions: Scheduled ibuprofen for pain control. Medrol Dosepak as directed until completed. Flexeril for muscle spasm. Barclay as needed for additional pain con trol. Have close follow-up with your primary care physician for an outpatient MRI if your symptoms are not improved. Patient Language: Japanese Prescriptions: New cyclobenzaprine 10 mg tablet 10 mg PO BID PRN (Reason: muscle spasm) 7 Days Qty: 14 0RF hydrocodone-acetaminophen 5-325 mg tablet 1 tablet PO Q12H PRN (Reason: pain) 7 Days Qty: 14 0RF methylprednisolone [Medrol (Laureano)] 4 mg tablets,dose pack See Rx Instructions .ROUTE .COMPLEX Qty: 21 0RF Rx Instructions: for 6 days Follow-up/Referrals: Michel Mcgee, [Primary Care Provider] -
[2024-09-16] MEDS: HYDROcodone/acetaminophen (*CRX) 10-325 MG TABLET 1 TAB PO (14:02)
[2024-09-16] MEDS: CYCLOBENZAPRINE HCL 10 MG TABLET PO (14:02)
--- OUTSIDE RECORDS SUMMARY | 2024-09-23 11:10 | XMS_ITS | Clinical Summary ---
Author Organization [facility] Address [address] [place] [address] Care Team Providers Care Energy Conservation Engineer Name Role Phone Michel Mcgee DO Primary Care Provider [phone] Source Comments [facility],non-owned Affiliates and Associated Physician Practices is amultiple site organization consisting of ambulatory clinics and hospital sitesin [place], [place], [place] and [place]. This disclosure is being madepursuant to the Care Everywhere program and may not contain all information available regarding this patient. Last updated 18.[facility] Allergies Active Allergy Reactions Criticality Noted Date Comments Contrast-Iodinated Agents For Ct/Other Rash Medium 02/26/2017 Dicyclomine Vision Changes 02/26/2017 Sumatriptan Palpitations 02/26/2017 Levofloxacin Rash Medium 02/26/2017 Topiramate Palpitations 02/26/2017 Hydrocodone-Acetaminophen Rash Medium 02/26/2017 Zinc Swelling 02/26/2017 Medications * Be aware that medications may not be up to date on this document. Alwaysverify current medications with the patient. Medication Sig Dispensed Refills Start Date End Date Status losartan (COZAAR) 25 MG tablet Take 25 mg by mouth once daily Active omeprazole (PRILOSEC) 40 MG capsule Take 40 mg by mouth daily before breakfast Active ezetimibe (ZETIA) 10 MG tablet Take 10 mg by mouth once daily Active Probiotic Product (PROBIOTIC ADVANCED PO) Active Family History Medical History Relation Name Comments CAD (Coronary Artery Disease) Father Diabetes - Type 1 Father Diabetes - Type 1 Mother Relation Name Status Comments Father Mother Social History Tobacco Use Types Packs/Day Years Used Date Smoking Tobacco: Never Smokeless Tobacco: Never Alcohol Use Standard Drinks/Week Comments Not Asked 2 (1 standard drink = 0.6 oz pur e alcohol) Sex and Gender Information Value Date Recorded Sex Assigned at Not on file Gender Identity Not on file Sexual Orientation Not on file Last Filed Vital Signs Vital Sign Reading Time Taken Comments Blood Pressure - - Pulse - - Temperature - - Respiratory Rate - - Oxygen Saturation - - Inhaled Oxygen Concentration - - Weight 56.7 kg (125 lb) 02/26/2017 8:40 AM CDT Height 160 cm (5' 3 ) 02/26/2017 8:40 AM CDT Body Mass Index 22.14 02/26/2017 8:40 AM CDT Plan of Treatment Health Maintenance Due Date Last Done Comments COLOGUARD (AGES 45-75) - COL ON CA SCREENING 1961 COLON MONITORING 1961 COLONOSCOPY - COLON CA SCREENING 1961 CT COLONOGRAPHY - COLON CA SCREENING 1961 Colorectal Cancer Screening 1961 FIT - COLON CA SCREENING 1961 FLEX SIG - COLON CA SCREENING 1961 LIPID TESTING 1961 MAMMOGRAM 1961 PAP SMEAR 1961 HIV SCREENING 02/04/1976 HEPATITIS C SCREENING 01/30/1979 DTAP/TDAP/TD VACCINES (1 - Tdap) 02/04/1980 ZOSTER VACCINE (1 of 2) 2011 DEPRESSION SCREENING 09/20/2023 COVID-19 VACCINE ( - 2023-2 5 season) 2024 INFLUENZA VACCINE (#1) 2024 Respiratory Syncytial Virus (RSV) Vaccine Pt: or over 60 yrs (1 - 1-dose 75+ series) 02/04/2036 HEPATITIS B VACCINE Aged Out No longe r eligible based on patient's age to complete this topic HIB VACCINE Aged Out No longer eligi ble based on patient's age to complete this topic HPV VACCINE Aged Out No longer eligi ble based on patient's age to complete this topic MENINGOCOCCAL VACCINE Aged Out No catherine bibiana eligible based on patient's age to complete this topic PNEUMOCOCCAL VACCINE Aged Out No long er eligible based on patient's age to complete this topic Care Teams Energy Conservation Engineer Relationship Specialty Start Date End Date Michel Mcgee DO PCP - General Internal Medicine 02/26/17
--- OUTSIDE RECORDS SUMMARY | 2024-09-23 11:10 | XMS_ITS | Encounter Summary ---
Author Organization [facility] Address [address] [place] [address] Care Team Providers Care Button Maker And Installer Name Role Phone Michel Mcgee DO Primary Care Provider [phone] Reason for Visit * Auth/Cert Specialty Diagnoses / Procedures Referred By Contkelly t Referred To Contact Diagnoses Abdominal bloating Flatulence Abdominal pain, generalized Abdominal bloating Flatulence Abdominal pain, generalized Procedures BREATH HYDROGEN TEST Referral ID Status Reason Start Date Expiration Date Visits Re quested Visits Authorized [id number] 1 1 Encounter Details Date Type Department Care Team (Late st Contact Info) Description 02/26/2017 8:30 AM CDT - 02/26/2017 9:00 AM CDT Surgery [facility] - Endoscopy Services [address] [place] [id number] Procedure, Nursing G_I BREATH HYDROGEN TEST Surgery Details Date/Time Status Location OR Service Patient Class Case Class Case Type Trauma Case? 02/26/2017 8:30 AM Posted [facility] Lab Gastroenterology Surgery Day Care Elective > 5 days Panel 1 Procedure LRB Anes Op Region Wound Class Comments BREATH HYDROGEN TEST None Clean Con taminated Surgeon Surgeon Role Service Panel Procedure, Nursing G_I Primary Gastroenterology [address] Mcgee documented in this encounter Social History Tobacco Use Types Packs/Day Years Used Date Smoking Tobacco: Never Smokeless Tobacco: Never Alcohol Use Standard Drinks/Week Comments Not Asked 2 (1 standard drink = 0.6 oz pur e alcohol) Sex and Gender Information Value Date Recorded Sex Assigned at Not on file Gender Identity Not on file Sexual Orientation Not on file documented as of this encounter Last Filed Vital Signs Vital Sign Reading Time Taken Comments Blood Pressure - - Pulse - - Temperature - - Respiratory Rate - - Oxygen Saturation - - Inhaled Oxygen Concentration - - Weight 56.7 kg (125 lb) 02/26/2017 8:40 AM CDT Height 160 cm (5' 3 ) 02/26/2017 8:40 AM CDT Body Mass Index 22.14 02/26/2017 8:40 AM CDT documented in this encounter Functional Status Functional Status Response Date of Assess ment Is person deaf or have serious hearing difficult y? No 02/26/2017 Is person blind or have serious difficulty seein g? No 02/26/2017 Does person have serious dif ficulty walking/climbing stairs? No 02/26/2017 Does person have difficulty dressing/bathing? No 02/26/2017 Does person have difficulty doing errands alone? No 02/26/2017 Cognitive Status Response Date of Assessm ent Does person have difficulty concentrating/remembering/making decisions? No 02/26/2017 documented as of this encounter Medications at Time of Discharge Medication Sig Dispensed Refills Start Date End Date ezetimibe (ZETIA) 10 MG tablet Take 10 mg by mouth once daily losartan (COZAAR) 25 MG tablet Take 25 mg by mouth once daily omeprazole (PRILOSEC) 40 MG capsule Take 40 mg by mouth daily before breakfast Probiotic Product (PROBIOTIC ADVANCED PO) documented as of this encounter Plan of Treatment Scheduled Orders Name Type Priority Associated Diagnoses Orde r Schedule HYDROGEN BREATH TEST GI Routine ONCE for 1 Occurrences starting 02/26/2017 until 02/26/2017 documented as of this encounter Procedures Procedure Name Priority Date/Time Associated Diagnosis Comments BREATH HYDROGEN/METHANE TEST 02/26/2017 8:15 AM CDT Abdominal bloating Flatulence Abdominal pain, generalized Special Needs Dr. Mcgee documented in this encounter Visit Diagnoses Diagnosis Abdominal bloating Flatulence, eructation, and gas pain Flatulence Flatulence, eructation, and gas pain Abdominal pain, generalized documented in this encounter Care Teams Button Maker And Installer Relationship Specialty Start Date End Date Michel Mcgee DO PCP - General Internal Medicine 02/26/17 documented as of this encounter
--- OUTSIDE RECORDS SUMMARY | 2024-09-23 11:10 | XMS_ITS | Referral Summary ---
Author Organization [facility] Address [address] [place] [address] Care Team Providers Care Piano Machine Operator Name Role Phone Michel Mcgee DO Primary Care Provider [phone] Source Comments [facility],non-owned Affiliates and Associated Physician Practices is amultiple site organization consisting of ambulatory clinics and hospital sitesin [place], [place], [place] and [place]. This disclosure is being madepursuant to the Care Everywhere program and may not contain all information available regarding this patient. Last updated 18.[facility] Allergies Active Allergy Reactions Criticality Noted Date [...] Active Probiotic Product (PROBIOTIC ADVANCED PO) Active Social History Tobacco Use Types Packs/Day Years [...] Mass Index 22.14 02/26/2017 8:40 AM CDT Functional Status Functional Status Response Date of [...] person have difficulty concentrating/remembering/making decisions? No 02/26/2017 Plan of Treatment Not on file Care Teams Piano Machine Operator Relationship Specialty Start Date End Date Michel Mcgee DO PCP - General Internal Medicine 02/26/17
--- OUTSIDE RECORDS SUMMARY | 2024-09-23 11:10 | XMS_ITS | Patient Health Summary ---
Author Organization [facility] Address [address] [place] [address] Care Team Providers Care Stiff Straw Hat Washer Name Role Phone Michel Mcgee DO Primary Care Provider [phone] Note from [facility],non-owned Affiliates and Associated Physician Practices is amultiple site organization consisting of ambulatory clinics and hospital sitesin [place], [place], [place] and [place]. This disclosure is being madepursuant to the Care Everywhere program and may not contain all information available regarding this patient. Last updated 18.[facility] Allergies * Contrast-Iodinated Agents For Ct/Other(Rash) -Medium Criticality * Dicyclomine(Vision Changes) * Sumatriptan(Palpitations) * Levofloxacin(Rash) -Medium Criticality * Topiramate(Palpitations) * Hydrocodone-Acetaminophen(Rash) -Medium Criticality * Zinc(Swelling) Medications * Be aware that medications may not be up to date on this document. Alwaysverify current medications with the patient. * losartan (COZAAR) 25 MG tablet Take 25 mg by mouth once daily * omeprazole (PRILOSEC) 40 MG capsule Take 40 mg by mouth daily before breakfast * ezetimibe (ZETIA) 10 MG tablet Take 10 mg by mouth once daily * Probiotic Product (PROBIOTIC ADVANCED PO) Social History Tobacco Use Types Packs/Day Years [...] Mass Index 22.14 02/26/2017 8:40 AM CDT Procedures * BREATH HYDROGEN/METHANE TEST(Performed 02/26/2017) Performed for Abdominal bloating, Flatulence, Abdominal pain, generalized Care Teams Stiff Straw Hat Washer Relationship Specialty Start Date End Date Michel Mcgee DO PCP - General Internal Medicine 02/26/17
--- OUTSIDE RECORDS SUMMARY | 2024-09-23 11:10 | XMS_ITS | Encounter Summary ---
Author Organization [facility] Address [address] [place] [address] Care Team Providers Care Security Orderly Name Role Phone Michel Mcgee DO Primary Care Provider [phone] Reason for Visit * Auth/Cert Specialty Diagnoses / Procedures Referred By Rosalind t Referred To Contact Diagnoses Abdominal bloating Flatulence Abdominal pain, generalized Abdominal bloating Flatulence Abdominal pain, generalized Procedures BREATH HYDROGEN TEST Referral ID Status Reason Start Date Expiration Date Visits Re quested Visits Authorized [id number] 1 1 Encounter Details Date Type Department Care Team (Latest Contact Info) Description 02/26/2017 8:04 AM CDT - 02/26/2017 12:39 PM CDT Hospital Encounter [facility] - Endoscopy Services [address] [place] [address] Nicolasa Fox MD [address] [place] [id number] Surgery General Discharge Disposition: Home or Self Care Social History Tobacco Use Types Packs/Day Years [...] Mcgee documented in this encounter Visit Diagnoses Not on filedocumented in this encounter Care Teams Security Orderly Relationship Specialty Start Date End Date Michel Mcgee DO PCP - General Internal Medicine 02/26/17 documented as of this encounter
--- OUTSIDE RECORDS SUMMARY | 2024-09-23 20:54 | XMS_ITS | Encounter Summary ---
Author Organization [facility] Address [address] [place] [address]. [place] [address] [place] [address] Care Team Providers Care Cap Parts Cutter Name Role Phone Unavailable Primary Care Provider Unavailabl e Encounter Details Date Type Department Care Team (Late st Contact Info) Description 02/23/2003 Abstract [facility] CONVERSION [address] [place] [address] , Generic Conversion, Social History Tobacco Use Types Packs/Day Years Used Date Smoking Tobacco: Never Assessed Comments Unknown Sex and Gender Information Value Date Recorded Sex Assigned at Not on file Legal Sex Female 7:25 PM CDT Gender Identity Not on file Sexual Orientation Not on file documented as of this encounter Plan of Treatment Not on file documented as of this encounter Visit Diagnoses Not on filedocumented in this encounter
--- OUTSIDE RECORDS SUMMARY | 2024-09-23 20:54 | XMS_ITS | Encounter Summary ---
Author Organization [facility] Address [address] [place] [address]. [place] [address] [place] [address] Care Team Providers Care Chain Offbearer Name Role Phone Unavailable Primary Care Provider Unavailabl e Encounter Details Date Type Department Care Team (Late st Contact Info) Description 06/23/2002 Abstract [facility] CONVERSION [address] [place] [address] , Generic Conversion, Social History Tobacco Use [...]
--- OUTSIDE RECORDS SUMMARY | 2024-09-23 20:54 | XMS_ITS | Encounter Summary ---
Author Organization [facility] Address [address] [place] [address] Care Team Providers Care Slime Plant Operator Helper Name Role Phone Michel Mcgee DO Primary Care Provider [phone] Reason for Visit * Auth/Cert Specialty Diagnoses / Procedures Referred By Rosalind t Referred To Contact Diagnoses Abdominal bloating Flatulence Abdominal pain, generalized Abdominal bloating Flatulence Abdominal pain, generalized Procedures BREATH HYDROGEN TEST Referral ID Status Reason Start Date Expiration Date Visits Re quested Visits Authorized [id number] 1 1 Encounter Details Date Type Department Care Team (Latest Contact Info) Description 02/26/2017 8:04 AM CDT - 02/26/2017 12:39 PM CDT Hospital Encounter [facility] - Endoscopy Services [address] [place] [address] Nicolasa Fox MD [address] [place] [id number] Surgery General Discharge Disposition: Home or Self [...] on filedocumented in this encounter Care Teams Slime Plant Operator Helper Relationship Specialty Start Date End Date Michel Mcgee DO PCP - General Internal Medicine 02/26/17 documented as of this encounter
--- OUTSIDE RECORDS SUMMARY | 2024-09-23 20:54 | XMS_ITS | Encounter Summary ---
Author Organization [facility] Address [address] [place] [address]. [place] [address] [place] [address] Care Team Providers Care Pleat Taper Name Role Phone Unavailable Primary Care Provider Unavailabl e Encounter Details Date Type Department Care Team (Late st Contact Info) Description 11/13/2002 Abstract [facility] CONVERSION [address] [place] [address] , Generic Conversion, Social History Tobacco Use [...]
--- OUTSIDE RECORDS SUMMARY | 2024-09-23 20:54 | XMS_ITS | Encounter Summary ---
Author Organization [facility] Address [address] [place] [address]. [place] [address] [place] [address] Care Team Providers Care Head Of Ict Name Role Phone Unavailable Primary Care Provider Unavailabl e Encounter Details Date Type Department Care Team (Late st Contact Info) Description 06/30/2002 Abstract [facility] CONVERSION [address] [place] [address] , Generic Conversion, Social History Tobacco Use [...]
--- OUTSIDE RECORDS SUMMARY | 2024-09-23 20:54 | XMS_ITS | Encounter Summary ---
Author Organization [facility] Address [address] [place] [address]. [place] [address] [place] [address] Care Team Providers Care Utility Operator Name Role Phone Unavailable Primary Care Provider Unavailabl e Encounter Details Date Type Department Care Team (Late st Contact Info) Description 10/18/2006 Abstract [facility] CON[facility] [address] [place] [address] Khushboo Carballo MD [address] [place] [address] Social History Tobacco Use Types Packs/Day Years [...]
--- OUTSIDE RECORDS SUMMARY | 2024-09-23 20:54 | XMS_ITS | Encounter Summary ---
Author Organization [facility] Address [address] [place] [address]. [place] [address] [place] [address] Care Team Providers Care Lease Administration Supervisor Name Role Phone Unavailable Primary Care Provider Unavailabl e Encounter Details Date Type Department Care Team (Late st Contact Info) Description 12/20/2002 Abstract [facility] CONVERSION [address] [place] [address] , Generic Conversion, Social History Tobacco Use [...]
--- OUTSIDE RECORDS SUMMARY | 2024-09-23 20:54 | XMS_ITS | Encounter Summary ---
Author Organization [facility] Address [address] [place] [address]. [place] [address] [place] [address] Care Team Providers Care Car Pre Cooler Name Role Phone Unavailable Primary Care Provider Unavailabl e Encounter Details Date Type Department Care Team (Late st Contact Info) Description 06/27/2002 Abstract [facility] CONVERSION [address] [place] [address] , Generic Conversion, Social History Tobacco Use [...]
--- OUTSIDE RECORDS SUMMARY | 2024-09-23 20:54 | XMS_ITS | Encounter Summary ---
Author Organization [facility] Address [address] [place] [address]. [place] [address] [place] [address] Care Team Providers Care Owner Oral Surgeon Name Role Phone Unavailable Primary Care Provider Unavailabl e Encounter Details Date Type Department Care Team (Late st Contact Info) Description 06/09/[address] [facility] CONVERSION [address] [place] [address] , Generic Conversion, Social History Tobacco Use [...]
--- OUTSIDE RECORDS SUMMARY | 2024-09-23 20:54 | XMS_ITS | Encounter Summary ---
Author Organization [facility] Address [address] [place] [address]. [place] [address] [place] [address] Care Team Providers Care Application Integrator Name Role Phone Unavailable Primary Care Provider Unavailabl e Encounter Details Date Type Department Care Team (Late st Contact Info) Description 05/21/[address] [facility] CONVERSION [address] [place] [address] , Generic Conversion, Social History Tobacco Use [...]
--- OUTSIDE RECORDS SUMMARY | 2024-09-23 20:54 | XMS_ITS | Encounter Summary ---
Author Organization [facility] Address [address] [place] [address]. [place] [address] [place] [address] Care Team Providers Care Floral Assistant Name Role Phone Unavailable Primary Care Provider Unavailabl e Encounter Details Date Type Department Care Team (Late st Contact Info) Description 03/16/2001 Abstract [facility] CONVERSION [address] [place] [address] , Generic Conversion, Social History Tobacco Use [...]
--- OUTSIDE RECORDS SUMMARY | 2024-09-23 20:54 | XMS_ITS | Encounter Summary ---
Author Organization [facility] Address [address] [place] [address]. [place] [address] [place] [address] Care Team Providers Care Retail Event And Sales Assistant Name Role Phone Unavailable Primary Care Provider Unavailabl e Encounter Details Date Type Department Care Team (Late st Contact Info) Description 12/01/2007 Abstract [facility] CONVERSION [address] [place] [address] Dewayne Ford PA [address] [place] [id number] Social History Tobacco Use Types Packs/Day Years [...]
--- OUTSIDE RECORDS SUMMARY | 2024-09-23 20:54 | XMS_ITS | Encounter Summary ---
Author Organization [facility] Address [address] [place] [address]. [place] [address] [place] [address] Care Team Providers Care Office Machine Punch Operator Name Role Phone Unavailable Primary Care Provider Unavailabl e Encounter Details Date Type Department Care Team (Late st Contact Info) Description 07/23/2006 Abstract [facility] CONVERSION [address] [place] [address] , Generic Conversion, Social History Tobacco Use [...]
--- OUTSIDE RECORDS SUMMARY | 2024-09-23 20:54 | XMS_ITS | Encounter Summary ---
Author Organization [facility] Address [address] [place] [address]. [place] [address] [place] [address] Care Team Providers Care Automatic Profile Shaper Operator Name Role Phone Unavailable Primary Care Provider Unavailabl e Encounter Details Date Type Department Care Team (Late st Contact Info) Description 08/30/2002 Abstract [facility] CONVERSION [address] [place] [address] , Generic Conversion, Social History Tobacco Use [...]
--- OUTSIDE RECORDS SUMMARY | 2024-09-23 20:54 | XMS_ITS | Encounter Summary ---
Author Organization [facility] Address [address] [place] [address]. [place] [address] [place] [address] Care Team Providers Care Probation Manager Name Role Phone Unavailable Primary Care Provider Unavailabl e Encounter Details Date Type Department Care Team (Late st Contact Info) Description 06/13/2002 Abstract [facility] CONVERSION [address] [place] [address] , Generic Conversion, Social History Tobacco Use [...]
--- OUTSIDE RECORDS SUMMARY | 2024-09-23 20:54 | XMS_ITS | Encounter Summary ---
Author Organization [facility] Address [address] [place] [address]. [place] [address] [place] [address] Care Team Providers Care Waiter/Waitress Cocktail Lounge Name Role Phone Unavailable Primary Care Provider Unavailabl e Encounter Details Date Type Department Care Team (Late st Contact Info) Description 11/18/2002 Abstract [facility] CONVERSION [address] [place] [address] , Generic Conversion, Social History Tobacco Use [...]
--- OUTSIDE RECORDS SUMMARY | 2024-09-23 20:54 | XMS_ITS | Clinical Summary ---
Author Organization [facility] Address [facility] [facility] [place] [address] [place] [address] Care Team Providers Care Night Clerk Name Role Phone Unavailable Primary Care Provider Unavailabl e Social History Tobacco Use Types Packs/Day Years Used Date Smoking Tobacco: Never Assessed Comments Unknown Sex and Gender Information Value Date Recorded Sex Assigned at Not on file Legal Sex Female 7:25 PM CDT Gender Identity Not on file Sexual Orientation Not on file Plan of Treatment Health Maintenance Due Date Last Done Comments Cervical Cancer Screening Pa p Smear (Age 30 to 64) Every 3 Years 1961 Colorectal Cancer Screening Colonoscopy (10 Years) 1961 Annual Physical 02/04/1964 Hepatitis C 1979 DTaP, Tdap and Td Vaccines ( 1 - Tdap) 02/04/1980 Cervical Cancer Screening Pa p with HPV Testing (Age 30 to 64) Every 5 Years 1991 Cervical Cancer Screening with HPV 1991 Mammogram Screening 2001 Zoster Vaccines (1 of 2) 2011 COVID-19 Vaccine ( - 2023-2 5 season) 2024 Influenza Adult (#1) 2024 RSV Immunization or 60+ Years (1 - 1-dose 75+ series) 02/04/2036 Meningococcal Vaccine Aged Out No catherine bibiana eligible based on patient's age to complete this topic Pneumococcal Vaccine: Pediat rics (0 to 5 Years) and At-Risk Patients (6 to 64 Years) Aged Out No longer eligible b ased on patient's age to complete this topic RSV Immunizations Under 20 Months Aged Out No longer eligible based on patient's age to complete this topic
--- OUTSIDE RECORDS SUMMARY | 2024-09-23 20:54 | XMS_ITS | Encounter Summary ---
Author Organization [facility] Address [address] [place] [address] Care Team Providers Care Jig Maker Name Role Phone Michel Mcgee DO Primary Care Provider [phone] Reason for Visit * Auth/Cert Specialty Diagnoses / Procedures Referred By Contkelly t Referred To Contact Diagnoses Abdominal bloating Flatulence Abdominal pain, generalized Abdominal bloating Flatulence Abdominal pain, generalized Procedures BREATH HYDROGEN TEST Referral ID Status Reason Start Date Expiration Date Visits Re quested Visits Authorized [id number] 1 1 Encounter Details Date Type Department Care Team (Late st Contact Info) Description 02/26/2017 8:30 AM CDT - 02/26/2017 9:00 AM CDT Surgery [facility] [address] [place] [address] Procedure, Nursing G_I BREATH HYDROGEN TEST Surgery Details Date/Time Status Location OR Service Patient Class Case Class Case Type Trauma Case? 02/26/2017 8:30 AM Posted [facility] Gastroenterology Surgery Day Care [...] generalized documented in this encounter Care Teams Jig Maker Relationship Specialty Start Date End Date Michel Mcgee DO PCP - General Internal Medicine 02/26/17 documented as of this encounter
--- OUTSIDE RECORDS SUMMARY | 2024-09-23 20:54 | XMS_ITS | Encounter Summary ---
Author Organization [facility] Address [address] [place] [address]. [place] [address] [place] [address] Care Team Providers Care Human Resources Temp Name Role Phone Unavailable Primary Care Provider Unavailabl e Encounter Details Date Type Department Care Team (Late st Contact Info) Description 10/22/2006 Abstract [facility] CONVERSION [address] [place] [address] , Generic Conversion, Social History Tobacco Use [...]
--- OUTSIDE RECORDS SUMMARY | 2024-09-23 20:54 | XMS_ITS | Encounter Summary ---
Author Organization [facility] Address [address] [place] [address]. [place] [address] [place] [address] Care Team Providers Care Lead Performance Support Analyst Name Role Phone Unavailable Primary Care Provider Unavailabl e Encounter Details Date Type Department Care Team (Late st Contact Info) Description 08/20/2006 Abstract [facility] CONVERSION [address] [place] [address] , Generic Conversion, Social History Tobacco Use [...]
--- OUTSIDE RECORDS SUMMARY | 2024-09-23 20:54 | XMS_ITS | Encounter Summary ---
Author Organization [facility] Address [address] [place] [address]. [place] [address] [place] [address] Care Team Providers Care Procedures Analyst Name Role Phone Unavailable Primary Care Provider Unavailabl e Encounter Details Date Type Department Care Team (Late st Contact Info) Description 01/04/2009 Abstract [facility] CONVERSION [address] [place] [address] Dewayne Ford PA [address] [place] [phone] Social History Tobacco Use Types Packs/Day [...]
--- OUTSIDE RECORDS SUMMARY | 2024-09-23 20:54 | XMS_ITS | Encounter Summary ---
Author Organization [facility] Address [address] [place] [address]. [place] [address] [place] [address] Care Team Providers Care Tread Tuber Machine Operator Name Role Phone Unavailable Primary Care Provider Unavailabl e Encounter Details Date Type Department Care Team (Late st Contact Info) Description 10/25/2006 Abstract [facility] CONVERSION [address] [place] [address] Khushboo Carballo MD [address] [place] [address] Social History Tobacco Use Types [...]
--- OUTSIDE RECORDS SUMMARY | 2024-09-23 20:54 | XMS_ITS | Encounter Summary ---
Author Organization [facility] Address [address] [place] [address]. [place] [address] [place] [address] Care Team Providers Care Scaffold Builder Name Role Phone Unavailable Primary Care Provider Unavailabl e Encounter Details Date Type Department Care Team (Late st Contact Info) Description 06/12/2002 Abstract [facility] CONVERSION [address] [place] [address] , Generic Conversion, Social History Tobacco Use [...]
--- OUTSIDE RECORDS SUMMARY | 2024-09-23 20:54 | XMS_ITS | Encounter Summary ---
Author Organization [facility] Address [address] [place] [address]. [place] [address] [place] [address] Care Team Providers Care Supervisor Cigar Processing Name Role Phone Unavailable Primary Care Provider Unavailabl e Encounter Details Date Type Department Care Team (Late st Contact Info) Description 09/22/2006 Abstract [facility] CONVERSION [address] [place] [address] , Generic Conversion, Social History Tobacco Use [...]
--- OUTSIDE RECORDS SUMMARY | 2024-09-23 20:54 | XMS_ITS | Referral Summary ---
Author Organization [facility] Address [address] [place] [address] Care Team Providers Care Cvicu Rn Name Role Phone Michel Mcgee DO Primary Care Provider [phone] Source Comments [facility],non-owned Affiliates and Associated Physician Practices is amultiple site organization consisting of ambulatory clinics and hospital sitesin [place], [place], [place] and [place]. This disclosure is being madepursuant to the Care Everywhere program and may not contain all information available regarding this patient. Last updated 18.[facility] Allergies Active Allergy Reactions Criticality Noted Date [...] of Treatment Not on file Care Teams Cvicu Rn Relationship Specialty Start Date End Date Michel Mcgee DO PCP - General Internal Medicine 02/26/17
--- OUTSIDE RECORDS SUMMARY | 2024-09-23 20:54 | XMS_ITS | Encounter Summary ---
Author Organization [facility] Address [address] [place] [address]. [place] [address] [place] [address] Care Team Providers Care Bill Recapitulation Clerk Name Role Phone Unavailable Primary Care Provider Unavailabl e Encounter Details Date Type Department Care Team (Late st Contact Info) Description 04/04/2001 Abstract [facility] CONVERSION [address] [place] [address] , Generic Conversion, Social History Tobacco Use [...]
--- OUTSIDE RECORDS SUMMARY | 2024-09-23 20:54 | XMS_ITS | Encounter Summary ---
Author Organization [facility] Address [address] [place] [address]. [place] [address] [place] [address] Care Team Providers Care Technical Support Associate Name Role Phone Unavailable Primary Care Provider Unavailabl e Encounter Details Date Type Department Care Team (Late st Contact Info) Description 05/04/[address] [facility] CONVERSION [address] [place] [address] , Generic Conversion, Social History Tobacco Use [...]
--- OUTSIDE RECORDS SUMMARY | 2024-09-23 20:54 | XMS_ITS | Encounter Summary ---
Author Organization [facility] Address [address] [place] [address]. [place] [address] [place] [address] Care Team Providers Care Early Childhood Coordinator Name Role Phone Unavailable Primary Care Provider Unavailabl e Encounter Details Date Type Department Care Team (Late st Contact Info) Description 10/14/2006 Abstract [facility] CONVERSION [address] [place] [address] Khushboo Carballo MD [address] [facility] [place] [address] Social History Tobacco Use Types [...]
--- OUTSIDE RECORDS SUMMARY | 2024-09-23 20:54 | XMS_ITS | Encounter Summary ---
Author Organization [facility] Address [address] [place] [address]. [place] [address] [place] [address] Care Team Providers Care Overnight Babysitter Name Role Phone Unavailable Primary Care Provider Unavailabl e Encounter Details Date Type Department Care Team (Late st Contact Info) Description 11/01/2002 Abstract [facility] CONVERSION [address] [place] [address] , Generic Conversion, Social History Tobacco Use [...]
--- OUTSIDE RECORDS SUMMARY | 2024-09-23 20:54 | XMS_ITS | Encounter Summary ---
Author Organization [facility] Address [address] [place] [address]. [place] [address] [place] [address] Care Team Providers Care Cloth Drier Name Role Phone Unavailable Primary Care Provider Unavailabl e Encounter Details Date Type Department Care Team (Late st Contact Info) Description 11/02/2002 Abstract [facility] CONVERSION [address] [place] [address] , Generic Conversion, Social History Tobacco Use [...]
--- OUTSIDE RECORDS SUMMARY | 2024-09-23 20:54 | XMS_ITS | Encounter Summary ---
Author Organization [facility] Address [address] [place] [address]. [place] [address] [place] [address] Care Team Providers Care Gummed Tape Press Operator Name Role Phone Unavailable Primary Care Provider Unavailabl e Encounter Details Date Type Department Care Team (Late st Contact Info) Description 06/22/2006 Abstract [facility] CONVERSION [address] [place] [address] , Generic Conversion, Social History Tobacco Use [...]
--- OUTSIDE RECORDS SUMMARY | 2024-09-23 20:54 | XMS_ITS | Encounter Summary ---
Author Organization [facility] Address [address] [place] [address]. [place] [address] [place] [address] Care Team Providers Care Machine Scallop Cutter Name Role Phone Unavailable Primary Care Provider Unavailabl e Encounter Details Date Type Department Care Team (Late st Contact Info) Description 11/20/2002 Abstract [facility] CONVERSION [address] [place] [address] , Generic Conversion, Social History Tobacco Use [...]
--- OUTSIDE RECORDS SUMMARY | 2024-09-23 20:54 | XMS_ITS | Clinical Summary ---
Author Organization [facility] Address [address] [place] [address] Care Team Providers Care Cooler Deliverer Name Role Phone Michel Mcgee DO Primary Care Provider [phone] Source Comments [facility],non-owned Affiliates and Associated Physician Practices is amultiple site organization consisting of ambulatory clinics and hospital sitesin [place], [place], [place] and [place]. This disclosure is being madepursuant to the Care Everywhere program and may not contain all information available regarding this patient. Last updated 18.[facility] Allergies Active Allergy Reactions Criticality Noted Date [...] age to complete this topic Care Teams Cooler Deliverer Relationship Specialty Start Date End Date Michel Mcgee DO PCP - General Internal Medicine 02/26/17
--- OUTSIDE RECORDS SUMMARY | 2024-09-23 20:54 | XMS_ITS | Encounter Summary ---
Author Organization [facility] Address [address] [place] [address]. [place] [address] [place] [address] Care Team Providers Care Cake Press Operator Name Role Phone Unavailable Primary Care Provider Unavailabl e Encounter Details Date Type Department Care Team (Late st Contact Info) Description 06/16/2002 Abstract [facility] CONVERSION [address] [place] [address] , Generic Conversion, Social History Tobacco Use [...]
--- OUTSIDE RECORDS SUMMARY | 2024-09-23 20:54 | XMS_ITS | Encounter Summary ---
Author Organization [facility] Address [address] [place] [address]. [place] [address] [place] [address] Care Team Providers Care Tapering Machine Operator Name Role Phone Unavailable Primary Care Provider Unavailabl e Encounter Details Date Type Department Care Team (Late st Contact Info) Description 06/28/2002 Abstract [facility] CONVERSION [address] [place] [address] , Generic Conversion, Social History Tobacco Use [...]
--- OUTSIDE RECORDS SUMMARY | 2024-09-23 20:54 | XMS_ITS | Patient Health Summary ---
Author Organization [facility] Address [address] [facility] [place] [address] Care Team Providers Care Short Order Cook Name Role Phone Michel Mcgee DO Primary Care Provider [phone] Note from [facility],non-owned Affiliates and Associated Physician Practices is amultiple site organization consisting of ambulatory clinics and hospital sitesin [place], [place], [place] and [place]. This disclosure is being madepursuant to the Care Everywhere program and may not contain all information available regarding this patient. Last updated 18.[facility] Allergies * Contrast-Iodinated Agents For Ct/Other(Rash) -Medium [...] bloating, Flatulence, Abdominal pain, generalized Care Teams Short Order Cook Relationship Specialty Start Date End Date Michel Mcgee DO PCP - General Internal Medicine 02/26/17
--- OUTSIDE RECORDS SUMMARY | 2024-09-23 20:54 | XMS_ITS | Encounter Summary ---
Author Organization [facility] Address [address] [place] [address]. [place] [address] [place] [address] Care Team Providers Care Tool Grinder Name Role Phone Unavailable Primary Care Provider Unavailabl e Encounter Details Date Type Department Care Team (Late st Contact Info) Description 11/09/2002 Abstract [facility] CONVERSION [address] [place] [address] , Generic Conversion, Social History Tobacco Use [...]
== END 2024-09-16 14:23 | disposition home or self-care (01) ==
PROVIDERS: Emergency Provider Emergency Medicine; PCP Internal Medicine
DX: M47.22 Other spondylosis with radiculopathy, cervical region (principal)
CPT/HCPCS: 72125; 99284; A9270

== ENCOUNTER 2024-10-31 06:34 | Outpatient (CLI) | payer OTHER, SELFPAY ==
--- NOTE | ~2024-10-31 | MR_ITS ---
MRI of the cervical spine Clinical History: Radiculopathy Technique: Axial T2-weighted and gradient images, and sagittal T1-weighted, T2-weighted, and STIR tamy ges were acquired. Findings: No acute fracture or sublocation seen. There is anterior and interbody fusion from C4 throu gh C7. No suspicious bone marrow signal abnormality seen. At C2-C3, there is no significant disc bulge or herniation. No spinal canal stenosis, cord compressio n, or neural foraminal narrowing. At C3-C4, there is disc ossify complex with canal stenosis and minimal flattening the ventral cord. T here is bilateral neural foraminal narrowing, right worse than left. At C4-C5, C5-C6, and C6-C7, there is no significant disc bulge or herniation. No canal stenosis or co rd compression at these levels. Neural foramina are probably preserved. No abnormal signal seen in the spinal cord. Paravertebral soft tissues are otherwise unremarkable. Impression: Moderate degenerative spondylitic changes at C3-C4, as above. Anterior fusion and interbody fusion from C4 through C7. Reviewed, dictated and finalized at [facility]. TEGIC PARTNERSHIP REPRESENTATIVE Impression: Moderate degenerative spondylitic changes at C3-C4, as above. Anterior fusion and interbody fusion from C4 through C7.
--- OUTSIDE RECORDS SUMMARY | 2024-10-31 06:39 | XMS_ITS | Continuity of Care Document ---
Author Name [facility] Organization [facility] Care Team Providers Care Apartment Leasing Agent Name Role Phone [facility] Unavailable Unavailable Problems Combined list of problems from Department of Defense and Veterans Affairs facilities. It does not include entries that were removed or entered in error. Problem Status Onset Date Problem Type Date of Resolution Comments Source otitis media acute serous both ears Active Condition DoD Cerv Pap Smear (+) Atyp Squamous Cells Undetermined Signif Active Condition neg HPV DoD pelvic pain Active Condition discusse d possibility of PAD with hx BTL and left ectopic, pt aware; will call pt with US results DoD routine gynecological exam with cervical pap smear Inactive Condition DoD fibromyalgia Active Condition Pt also has OTC and 800mg Ibuprofem as well as Tylenol for prn use DoD otitis media left ear Active Condition DoD cervical dysplasia Active Condition DoD cervical dysplasia: mild Active Condition remove from dysplasia clinic, repeat pap 1yr DoD menorrhagia Active Condition keep men strual calendar, parameters given; to notify clinic if exceed parameters; briefly discussed hormonal bc, cyclic provera, cyclic NSAID's, surgical options; will await bx results; will call pt with results DoD Abnormal Pap Smear Of Cervix Active Condition will call pt with bx results DoD visit for: refer patient without exam or treatment Inactive Condition DoD nonspecific abnormal findings Active Condition DoD visit for: issue repeat prescription Inactive Condition DoD visit for: screening exam for malignant neoplasm cervix Active Condition DoD Preventive Medicine Established Patient Checkup Adult 40-64 Years Inactive Condition DoD visit for: screening exam malignant neoplasm breast Inactive Condition DoD cervicalgia Active Condition She has folllow up appt with neurology in Jul for her neck. I advised her to keep that. She did not have good rapport with one neurologist. DoD headache syndromes Active Condition DoD visit for: administrative purpose Active Condition DoD dyspareunia Active Condition DoD Cervix Sample Taken For Pap Smear Active Condition DoD Laboratory Studies Active Condition DoD irregular length of menstrual periods Active Condition keep menstrual calendar, parameters given; notify clinic if exceed parameters DoD menopausal disorder Active Condition ordered cbc, cmp, tsh, fsh/lh, hcg; will consider starting OCP's to try and stobilize sx's DoD sinusitis acute Inactive Condition DoD allergic rhinitis Active Condition DoD Allergies, Adverse Reactions, Alerts Combined list of allergies from Department of Defense and Veterans Affairs facilities. It does not include entries that were removed or entered in error. Substance Category Reaction Severity Reaction type Status Date Reported Comments Source ZINC-10 (DO NOT USE, NOT SCREENED) Drug allergy (disorder) Unknown active 05/31/2008 [place] [address] Immunizations Combined list of available immunizations from the Department of Defense and Veterans Affairs facilities. Immunization Series Date Given Administered By Site Reaction Lot Number CVX Code Drug Web Producer Status Comments Source hepatitis A vaccine, adult dosage 1 1999 Unknown, Provider 52 Transcribed (TRS) complet ed hepatitis A vaccine, adult dosage DoD hepatitis A vaccine, adult dosage 2 1999 Unknown, Provider 52 Transcribed (TRS) complet ed hepatitis A vaccine, adult dosage DoD tetanus and diphtheria toxoids, adsorbed, preservative free, for adult use (5 Lf of tetanus toxoid and 2 Lf of diphtheria toxoid) 1 1996 Unknown, Provider 113 Transcribed (TRS) complet ed tetanus and diphtheri a toxoids, adsorbed, preservat iain free, for adult use (5 Lf of tetanus toxoid and 2 Lf of diphtheri a toxoid) DoD Encounters Combined list of: 1) Encounters from Department of Veterans Affairs facilities going backup to the last 18 months, not all VA inpatient encounters are included; 2) Encounters from the Department of Defense facilities going backup to 280 months. Location Location Details Encounter Type Encounter Number Reason For Visit Attending Provider ADM Date DC Date Status Disposition Source [address] [place] [address] [facility] [place] Non-GME FHI2) OUTPATIENT [id number] rash on face and cheast GAL ARMSTRONG 12/19 Released w/o Limitations [address] [place] [address] [facility] [place] Practic e Non-GME FHI2) [address] [place] [address] [facility] [place] Non-GME FHI1) OUTPATIENT [id number] evaluat SHILPA Black 06/03 Released w/o Limitations [address] [place] [address] [facility] [place] Practic e Non-GME FHI1) [address] [place] [address] [facility]am [facility] Practice Non-GME FHI1) OUTPATIENT [id number] f/u appt lab results SHILPA LAMBERT 06/19 Released w/o Limitations [address] [place] [address])([facility] am[facility] Practic e Non-GME FHI1) [address] [place] [address])([facility] Non-GME FHI1) TELE CONSULT [id number] lab results MARY SALGUERO 06/[address] [place] [address])([facility] amily Practic e Non-GME FHI1) [address] [place] [address])([facility] Non-GME FHI2) OUTPATIENT [id number] well woman ROBERJT 07/13 Released w/o Limitations [address] [place] [address])(F amily Practic e Non-GME FHI2) [address] [place] [address])([facility] Non-GME FHI1) TELE CONSULT [id number] ACTIVE MIGRAIN E MARY SALGUERO 04/[address] [place] [address])(F amily Practic e Non-GME FHI1) [address] [place] [address])([facility] Non-GME FHI1) OUTPATIENT [id number] migrain es-disc uss abortiv e/prohy lactic meds YOVANI CERON 04/19 Released w/o Limitations [address] [place] [address])([facility] amily Practic e Non-GME FHI1) [address] [place] [address])([facility] Non-GME FHI1) TELE CONSULT [id number] YOVANI CERON 05/[address] [place] [address])([facility] amily Practic e Non-GME FHI1) [address] [place] [address])([facility] Non-GME FHI1) TELE CONSULT [id number] Headach es MARY SALGUERO 05/[address] [place], [place] [address]B [facility] [place] Practic e Non-GME FHI1) [address] [place] [address])([facility] Non-GME FHI1) OUTPATIENT [id number] medicat ion review- migrain es-inso mniYOVANI Selby 06/08 Released w/o Limitations [facility])(F amily Practic e Non-GME FHI1) [address] [place] [address])([facility] yana Practice Non-GME FHI1) OUTPATIENT [id number] ANNUAL PAP. PHONE:[phone]* C MARTELL DALLAS 12/01 Released w/o Limitations [facility])(F amily Practic e Non-GME FHI1) [address] [place], [place] [address]B [facility] yana Practice Non-GME FHI1) TELE CONSULT [id number] walk in lab results LILIA ROSS 12/[address] [place] [address])(F amily Practic e Non-GME FHI1) [address] [place] [address])([employer]) OUTPATIENT [id number] endomet rial hyperpl bethany, ASCUS NILSON CRUZ 01/31 Released w/o Limitations [address] [place] [address])(G ynecolo gy) [address] [place] [address])([employer] [facility]) TELE CONSULT [id number] results NILSON CRUZ 02/[address] [place] [address])(G ynecolo gy) [address] [place] [address])([employer] [facility]) OUTPATIENT [id number] DYS PT. NEEDS REPEAT PAP SIMONA BAILEY 05/06 Released w/o Limitations [address] [place] [address])(G ynecolo gy) [address] [place] [address])([employer] [facility]) TELE CONSULT [id number] colpo appt SIMONA BAILEY 05/[address] [place] [address])(G ynecolo gy) [address] [place] [address])([employer]) OUTPATIENT [id number] colNILSON Benson 05/30 Released w/o Limitations [address] [place] [address] [employer] [facility]G ynecolo gy) [address] [place] [address])([employer] [facility]) TELE CONSULT [id number] results NILSON CRUZ 06/[address] [place] [address] [place] B [facility]G ynecolo gy) [address] [place] [address] [place] [facility] Non-GME FHI1) OUTPATIENT [id number] EAR PAIN. PH:[phone]*C JACLYN PARRA 06/22 Released w/o Limitations [address] [place] [address] [place] [facility]F amily Practic e Non-GME FHI1) [address] [place] [address] [facility] B [facility] Non-GME FHI1) OUTPATIENT [id number] shoulde r pain DEREK LAWRENCE 11/20 Released w/o Limitations [address] [place] [address] [place] [facility]F amily Practic e Non-GME FHI1) [address] [place] [address] [place] B [facility] Non-GME FHI1) TELE CONSULT [id number] call back per Dr Lawrence - r/t labs from 21 Nov 2007 LILIA VALENTIN 12/[address] [place] [address] [facility])(F amily Practic e Non-GME FHI1) [address] [place] [address] [place] [facility]) OUTPATIENT [id number] dysplas ia pt - pap with HPV NILSON CRUZ 05/10 Released w/o Limitations [address] [place] [address])(G ynecolo gy) [address] [place] [address] [facility] B [facility] [facility]) TELE CONSULT [id number] Call Back, lab results - SOTERO Gandhi 05/[address] [place] [address])(G ynecolo gy) [address] [place], [place] [address]B [facility] [facility]) TELE CONSULT [id number] results NILSON CRUZ 05/[address] [place] [address] [facility] B [facility]G ynecolo gy) [address] [place] [address] [facility] B [facility]War rior Op Med Cln Tm A Ad) OUTPATIENT [id number] clogged ears JACLYN PARRA 12/07 Released w/o Limitations [address] [place] [address] [employer] [place] [place]W arrior Op Med Cln Tm A Ad) Procedures Combined list of: 1) Procedures from Department of Veterans Affairs facilities going back up to thelast 18 months, not all VA non-surgical procedures are included; 2) All procedures from the Department of Defense facilities. Procedure Procedure Type Code Date Perfomer Amada Gonzalez e SCREENING PAPANICOLAOU SMEAR; OBTAINING, PREPARING AND CONVEYANCE OF CERVICAL OR VAGINAL SMEAR TO LABORATORY 05/10/2008 [facility] URINE TEST, BY VISUAL COLOR COMPARISON METHODS 05/30/2007 [facility] URINE TEST, BY VISUAL COLOR COMPARISON METHODS 01/31/2007 [facility] CYTOPATHOLOGY, SMEARS, CERVICAL OR VAGINAL, UP TO THREE SMEARS; SCREENING BY SUGAR REPROCESS OPERATOR HEAD UNDER PHYSICIAN SUPERVISION 12/01/2006 [facility] INJECTION, KETOROLAC TROMETHAMINE, PER 15 MG 04/19/2006 [facility] SCREENING TEST OF VISUAL ACUITY, QUANTITATIVE, BILATERAL 12/02/2005 [facility] SCREENING PAPANICOLAOU SMEAR; OBTAINING, PREPARING AND CONVEYANCE OF CERVICAL OR VAGINAL SMEAR TO LABORATORY 07/13/2005 [facility] Screening papanicolaou smear; obtaining, preparing and conveyance of cervical or vaginal smear to laboratory 05/10/2008 NILSON CRUZ Colposcopy With Biopsy Colposcopy With Biopsy [id number] 05/30/2007 NILSON CRUZ Test Test [id number] 05/30/2007 NILSON CARRASCO Cervical Pap Smear Cervical Pap Smear [id number] 7 SIMONA BAILEY [facility] Endometrial Biopsy By Suction Endometrial Biopsy By Suction [id number] 01/31/2007 NILSON CRUZ Test Test [id number] 01/31/2007 NILSON CARRASCO Colposcopy With Biopsy Colposcopy With Biopsy [id number] 01/31/2007 NILSON CRUZ Cervical Pap Smear Cervical Pap Smear 32889 12/01/2006 MARTELL DALLAS Screening papanicolaou smear; obtaining, preparing and conveyance of cervical or vaginal smear to laboratory 12/01/2006 MARTELL DALLAS oD Infusion, normal saline solution , 1000 cc 04/19/2006 YOVANI CERON Injection, ketorolac tromethamine, per 15 mg 04/19/2006 YOVANI CERON Screening papanicolaou smear; obtaining, preparing and conveyance of cervical or vaginal smear to laboratory 07/14/2005 LILIA THOMAS [facility] Social History Combined list of available smoking, tobacco, and other social history from Department of Defense and Veterans Affairs facilities. Social History Type Response Date Comment Sour e This section is an empty social history section. DoD
--- OUTSIDE RECORDS SUMMARY | 2024-10-31 06:40 | XMS_ITS | Clinical Summary ---
Author Organization [facility] Address [address] [place] [address] Care Team Providers Care Playroom Attendant Name Role Phone Michel Mcgee DO Primary Care Provider [phone] Source Comments [facility],non-owned Affiliates and Associated Physician Practices is amultiple site organization consisting of ambulatory clinics and hospital sitesin [place], [place], [place] and [place]. This disclosure is being madepursuant to the Care Everywhere program and may not contain all information available regarding this patient. Last updated 18.[facility] Allergies Active Allergy Reactions Criticality Noted Date [...] 01/30/1979 DTAP/TDAP/TD VACCINES (1 - Tdap) 02/04/1980 PNEUMOCOCCAL VACCINE 50+ (1 of 1 - PCV) 2011 ZOSTER VACCINE (1 of 2) 2011 COVID-19 VACCINE ( - 2023-2 5 season) 2024 INFLUENZA VACCINE (#1) 2024 DEPRESSION SCREENING 09/20/2024 Respiratory Syncytial Virus (RSV) Vaccine Pt: or [...] patient's age to complete this topic MENINGOCOCCAL (Group B) VACCINE Aged Out No longer eligible based on patient's age to complete this topic MENINGOCOCCAL VACCINE Aged Out No catherine bibiana eligible based on patient's age to complete this topic PNEUMOCOCCAL VACCINE Aged Out No long er eligible based on patient's age to complete this topic Care Teams Playroom Attendant Relationship Specialty Start Date End Date Michel Mcgee DO PCP - General Internal Medicine 02/26/17
--- OUTSIDE RECORDS SUMMARY | 2024-10-31 06:40 | XMS_ITS | Referral Summary ---
Author Organization [facility] Address [address] [place] [address] Care Team Providers Care Damage Assessor Name Role Phone Michel Mcgee DO Primary Care Provider [phone] Source Comments [facility],non-owned Affiliates and Associated Physician Practices is amultiple site organization consisting of ambulatory clinics and hospital sitesin [place], [place], [place] and [place]. This disclosure is being madepursuant to the Care Everywhere program and may not contain all information available regarding this patient. Last updated 18.[facility] Allergies Active Allergy Reactions Criticality Noted Date [...] of Treatment Not on file Care Teams Damage Assessor Relationship Specialty Start Date End Date Michel Mcgee DO PCP - General Internal Medicine 02/26/17
--- OUTSIDE RECORDS SUMMARY | 2024-10-31 06:40 | XMS_ITS | Clinical Summary ---
Author Organization [facility] Address [address] [place] [address] Care Team Providers Care Night Guard Name Role Phone Unavailable Primary Care Provider [...] Vaccines (1 of 2) 2011 COVID-19 Vaccine (2023-2 5 season) 2024 Influenza Adult (#1) 2024 RSV Immunization or 60+ Years (1 - 1-dose 75+ series) 02/04/2036 Meningococcal B Vaccine Aged Out No l onger eligible based on patient's age to complete this topic Meningococcal Vaccine Aged Out No catherine bibiana [...]
--- OUTSIDE RECORDS SUMMARY | 2024-10-31 06:40 | XMS_ITS | Patient Health Summary ---
Author Organization [facility] Address [address] [place] [address] Care Team Providers Care Aircraft Stress Analyst Name Role Phone Michel Mcgee DO Primary Care Provider [phone] Note from [facility],non-owned Affiliates and Associated Physician Practices is amultiple site organization consisting of ambulatory clinics and hospital sitesin [place], [place], [place] and [place]. This disclosure is being madepursuant to the Care Everywhere program and may not contain all information available regarding this patient. Last updated 18.[facility] Allergies * Contrast-Iodinated Agents For Ct/Other(Rash) [...] bloating, Flatulence, Abdominal pain, generalized Care Teams Aircraft Stress Analyst Relationship Specialty Start Date End Date Michel Mcgee DO PCP - General Internal Medicine 02/26/17
== END 2024-10-31 06:35 | disposition home or self-care (01) ==
PROVIDERS: PCP Internal Medicine; Visit Provider Nurse Practitioner
DX: M47.892 Other spondylosis, cervical region (principal); Z98.1 Arthrodesis status
CPT/HCPCS: 72141

== ENCOUNTER 2024-11-23 09:00 | Outpatient (RCR) | payer OTHER, SELFPAY ==
--- NOTE | 2024-09-29 14:45 | PTOPEVAL1 ---
Assessment and note entered by Gisela Stover, PT Evaluation Information Assessment Status Evaluation Diagnosis cervicalgia with radiculopathy ICD-10 Condition Codes (PT) Cervicalgia M54.2,Radiculopathy, cervical M54.13 Other ICD-10 Condition Codes ( Abnormal posture, stiffness of the cervical spine PT) Onset 09/12/25 Subjective Information Pt currently taking Meloxicam for pain. Is the only thing that has helped so far. Reports feeling this is at the C7 location, is pulsing and throbbing Woke up, felt a pinch, was ok that day but then hand stated going numb and shooting pain. Went to chiropractor on and by Wednesday was significantly worse and went to emergency room. Gave two types of pain medication which helped but was unable to function after that. Laying down hurts, leaning back hurts, and sometimes just sitting still hurts worse. Chiropractor told her to do heat and then ice right away and this seems to help. When she did just ice it just hurt after a while Reports numbness and tingling into pinky and outside of arm Reported Pain Level Pain Score 9: Self Report Assessment PT Clinical Summary Pt presents with severe neck pain and radiculopathy that presents with a C7 nerve root pattern. Presentation suggestive of T1 rotation and possible disc bulge though imaging review does not currently support this. 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 Pt will benefit from physical therapy to address deficits, reduce pain, and return patient to pain-free prior level of function. Plan of Care Interventions Electrical Stimulation,Gait Training,Hot Pack/Cold Pack,Manual Therapy,Neuro Re-education, Therapeutic Activities,Therapeutic Exercise,Self- Care/Home Management,Other Other Interventions Taping, dry needling PT Services Indicated Yes Treatment Frequency and 1-3x weekly x 10 visits Duration These treatments will address the objective and functional deficits as defined above. The patient will be advanced safely and appropriately in order for the patient to progress towards his/her prior level of function. Additional exercises will be introduced and as well as a comprehensive home exercise program upon discharge, if needed, ?to ensure carryover of functional gains achieved in the clinic. This treatment plan has been reviewed and agreement upon by the patient.
--- NOTE | 2024-09-29 14:45 | OPREHPOC ---
Outpatient Therapy Plan of Care This is a Multidisciplinary Plan of Care that may contain components documented by all disciplines (PT, OT, and ST.) PT Problem 1 PT Problem #1 Knowledge Deficit PT Goal 1 Goal / Goal Update Pt will be independent in HEP Pt will verbalize understanding of diagnosis and prognosis Target Visit 5 PT Problem 2 PT Problem #2 Pain PT Goal 1 Goal / Goal Update Pt will report lowest pain rating at 0/10 to show improvement in overall discomfort Target Visit 5 PT Goal 2 Goal / Goal Update Pt will report greatest pain level at 3/10 or less to improve ADLs and activities Target Visit 10 PT Problem 3 PT Problem #3 Impaired Range of Motion PT Goal 1 Goal / Goal Update Pt will demonstrate current ROM actively without pain Target Visit 10 PT Problem 4 PT Problem #4 Impaired Sensation PT Goal 1 Goal / Goal Update Pt will report resolution of radicular symptoms Target Visit 10
--- NOTE | 2024-10-23 10:00 | OPREHPOC ---
Outpatient Therapy Plan of Care This is a Multidisciplinary Plan of Care that may contain components documented by all disciplines (PT, OT, and ST.) PT Problem 1 PT Problem #1 Knowledge Deficit PT Goal 1 Goal / Goal Update Pt will be independent in HEP Pt will verbalize understanding of diagnosis and prognosis Target Visit 5 Progress Met PT Problem 2 PT Problem #2 Pain PT Goal 1 Goal / Goal Update Pt will report lowest pain rating at 0/10 to show improvement in overall discomfort Target Visit 16 Progress Not Met PT Goal 2 Goal / Goal Update Pt will report greatest pain level at 3/10 or less to improve ADLs and activities Target Visit 16 Progress Partially Met PT Problem 3 PT Problem #3 Impaired Range of Motion PT Goal 1 Goal / Goal Update Pt will demonstrate current ROM actively without pain Target Visit 16 Progress Partially Met PT Problem 4 PT Problem #4 Impaired Sensation PT Goal 1 Goal / Goal Update Pt will report resolution of radicular symptoms Target Visit 16 Progress Partially Met
--- NOTE | 2024-10-23 10:00 | PTOPPROG ---
Assessment and note entered by Jose Driscoll, PT Evaluation Information Assessment Status Progress Diagnosis cervicalgia with radiculopathy ICD-10 Condition Codes (PT) Cervicalgia M54.2,Radiculopathy, cervical M54.13 Other ICD-10 Condition Codes ( Abnormal posture, stiffness of the cervical spine PT) Onset 09/12/25 Subjective Information Reports that she is still having numbness and tingling in her left 4th and 5th digit. Cannot sleep on her left side and still a little restless . Pain is persistent and still having consistent migraines. Reports that she has been doing her stretching consistently at home. Focuses on chest stretching and back muscle activation. Would like to try dry needling today as it has helped her in the past. Assessment PT Clinical Summary Patient continues with presentations of cervical radiculopathy on ulnar nerve distribution. Patient is schedule for MRI next week to assess if there is structural limitation. Making slow but positive progress and will continue to benefit from skilled therapy to address deficits. Plan of Care Interventions Electrical Stimulation,Gait Training,Hot Pack/Cold Pack,Manual Therapy,Neuro Re-education, Therapeutic Activities,Therapeutic Exercise,Self- Care/Home Management,Other Other Interventions Taping, dry needling PT Services Indicated Yes Treatment Frequency and 2x weekly x 8 vistis Duration These treatments will address the objective and functional deficits as defined above. The patient will be advanced safely and appropriately in order for the patient to progress towards his/her prior level of function. Additional exercises will be introduced and as well as a comprehensive home exercise program upon discharge, if needed, ?to ensure carryover of functional gains achieved in the clinic. This treatment plan has been reviewed and agreement upon by the patient.
--- NOTE | 2024-11-23 10:30 | PTOPDC ---
Assessment and note entered by Jose Driscoll, PT Evaluation Information Assessment Status Discharge Diagnosis cervicalgia with radiculopathy ICD-10 Condition Codes (PT) Cervicalgia M54.2,Radiculopathy, cervical M54.13 Other ICD-10 Condition Codes ( Abnormal posture, stiffness of the cervical spine PT) Onset 09/12/25 Subjective Information Reports that she is scheduled for injection . Overall therapy has helped but she has yet to have consistent resolution of symptoms. Feels she has greatly benefitted from dry needling. Reported Pain Level Pain Score 2: Self Report Assessment PT Clinical Summary We have seen some improvement in objective measures but many have been maintained. Overall continues to struggle with pain and discomfort. We are hoping cervical injections coupled with developed HEP with promote prison pain relief. Will be discharged from skilled therapy at this time. Plan of Care PT Services Indicated Yes
== END 2024-11-23 11:39 | disposition home or self-care (01) ==
LOC: ANHPT 09:00
PROVIDERS: PCP Internal Medicine; Visit Provider Internal Medicine
DX: M54.12 Radiculopathy, cervical region (principal)
CPT/HCPCS: 97014; 97110; 97140; 97162; 97530; G0283

== ENCOUNTER 2025-03-15 15:26 | Outpatient (CLI) | payer OTHER, SELFPAY ==
--- NOTE | ~2025-03-15 | MM_ITS ---
EXAMINATION: MM screening [facility] BI w ivette HISTORY: Screening mammogram TECHNIQUE: Craniocaudal and mediolateral oblique 3-D tomosynthesis images were obtained and synthetic 2-D images were generated. CAD analysis was submitted and interpreted. COMPARISON: 01/28/2024, 11/19/2022, 09/25/2021 BREAST PARENCHYMAL COMPOSITION:Not Dense. There are scattered areas of fibroglandular density. FINDINGS: No suspicious mass, calcification, or architectural distortion are identified in either rafaela ast to suggest malignancy. There has been no suspicious interval change. IMPRESSION: No mammographic evidence of malignancy. Recommend routine screening mammography in one year. BI-RADS Category 1: Negative Reviewed, dictated and finalized at location .
== END 2025-03-15 15:27 | disposition home or self-care (01) ==
LOC: ANHIMG 15:46
PROVIDERS: PCP Internal Medicine; Visit Provider Internal Medicine
DX: Z12.31 Encounter for screening mammogram for malignant neoplasm of breast (principal)
CPT/HCPCS: 77063; 77067

== ENCOUNTER 2025-03-30 09:35 | Outpatient (CLI) | payer OTHER, SELFPAY ==
--- OUTSIDE RECORDS SUMMARY | 2025-03-30 09:41 | XMS_ITS | Clinical Summary ---
Author Organization [facility] Address [address] [place] [address] Care Team Providers Care Biological Chemist Name Role Phone Michel Mcgee DO Primary Care Provider [phone] [phone] Source Comments [facility],non-owned Affiliates and Associated Physician Practices is amultiple site organization consisting of ambulatory clinics and hospital sitesin [place], [place], [place] and [place]. This disclosure is being madepursuant to the Care Everywhere program and may not contain all information available regarding this patient. Last updated 18.[facility] Allergies Active Allergy Reactions Criticality Noted Date Comments Contrast-Iodinated Agents For Ct/Other Rash Medium 02/26/2017 Dicyclomine Vision Changes 02/26/2017 Sumatriptan Palpitations 02/26/2017 Levofloxacin Rash Medium 02/26/2017 Topiramate Palpitations 02/26/2017 Hydrocodone-Acetaminophen Rash Medium 02/26/2017 Zinc Swelling 02/26/2017 Medications * Be aware that medications may not be up to date on this document. Alwaysverify current medications with the patient. losartan (COZAAR) 25 MG tablet Take 25 [...] drink = 0.6 oz pur e alcohol) Comments Unknown Sex and Gender Information Value Date Recorded Sex Assigned at Not on file Legal Sex Female 3:40 PM CDT Gender Identity Not on file Sexual Orientation Not on file Last Filed Vital Signs Vital Sign Reading Time Taken Comments Blood Pressure - - Pulse - - Temperature - - Respiratory Rate - - Oxygen Saturation - - Inhaled Oxygen Concentration - - Weight 56.7 kg (125 lb) 02/26/2017 8:40 AM CDT Height 160 cm (5' 3) 02/26/2017 8:40 AM CDT Body Mass Index [...] SCREENING 1960 LIPID TESTING 1960 MAMMOGRAM 1960 HIV SCREENING 02/04/1976 HEPATITIS C SCREENING 01/30/1979 DTAP/TDAP/TD VACCINES (1 - Tdap) 02/04/1980 PNEUMOCOCCAL VACCINE 50+ (1 of 1 - PCV) 2011 ZOSTER VACCINE (1 of 2) 2011 COVID-19 VACCINE (1 - 2023-2 5 season) 2024 DEPRESSION SCREENING 09/20/2024 INFLUENZA VACCINE (Season Ended) 2025 Respiratory Syncytial Virus (RSV) Vaccine Pt: or [...] to complete this topic MENINGOCOCCAL (Group B) VACC INE SHARED DECISION-MAKING Aged Out No longer eligibl e based on patient's age to complete this topic MENINGOCOCCAL GROUPS A/C/Y/W VACCINE Aged Out No longer eligible b ased on patient's age to complete this topic Insurance [facility] Care Teams Biological Chemist Relationship Specialty Start Date End Date Michel Mcgee DO PCP - General Internal Medicine 02/26/17
--- OUTSIDE RECORDS SUMMARY | 2025-03-30 09:41 | XMS_ITS | Clinical Summary ---
Author Organization [facility] Address [address] [place] [address] Care Team Providers Care Music Store Manager Name Role Phone Unavailable Primary Care [...] Screening with HPV 1991 Mammogram Screening 2001 Pneumococcal Vaccine: 50+ Ye ars (1 of 1 - PCV) 2011 Zoster Vaccines (1 of 2) 2011 COVID-19 Vaccine (2023-2 5 season) 2024 RSV Immunization or 60+ Years (1 [...]
--- OUTSIDE RECORDS SUMMARY | 2025-03-30 09:41 | XMS_ITS | Continuity of Care Document ---
Author Name [facility] Organization [facility] Care Team Providers Care Deputy Commissioner Name Role Phone [facility] Unavailable Unavailable Problems Combined list of problems from Department of Defense and Veterans Affairs facilities. It does not include entries that were removed or entered in error. Problem Status Onset Date Problem Type Date of Resolution Comments Source OTITIS MEDIA ACUTE SEROUS BOTH EARS Active Condition DoD Cerv Pap Smear (+) Atyp Squamous Cells Undetermined Signif Active Condition neg HPV DoD pelvic pain Active Condition discusse d possibility of PAD with hx BTL and left ectopic, pt aware; will call pt with US results DoD ROUTINE GYNECOLOGICAL EXAM WITH CERVICAL PAP SMEAR Inactive Condition DoD FIBROMYALGIA Active Condition Pt also has OTC and 800mg Ibuprofem as well as Tylenol for prn use DoD OTITIS MEDIA LEFT EAR Active Condition DoD CERVICAL DYSPLASIA Active Condition DoD CERVICAL DYSPLASIA: MILD Active Condition remove from dysplasia clinic, repeat pap 1yr DoD MENORRHAGIA Active Condition keep men strual calendar, parameters given; to notify clinic if exceed parameters; briefly discussed hormonal bc, cyclic provera, cyclic NSAID's, surgical options; will await bx results; will call pt with results DoD Abnormal Pap Smear Of Cervix Active Condition will call pt with bx results DoD visit for: refer patient without exam or treatment Inactive Condition DoD NONSPECIFIC ABNORMAL FINDINGS Active Condition DoD visit for: issue repeat prescription Inactive Condition DoD visit for: screening exam for malignant neoplasm cervix Active Condition DoD Preventive Medicine Estab Patient Checkup Adult 40-64 Inactive Condition DoD visit for: screening exam malignant neoplasm breast Inactive Condition DoD CERVICALGIA Active Condition She has folllow up appt with neurology in Jul for her neck. I advised her to keep that. She did not have good rapport with one neurologist. DoD HEADACHE SYNDROMES Active Condition DoD visit for: administrative purpose Active Condition DoD DYSPAREUNIA Active Condition DoD Cervix Sample Taken For Pap Smear Active Condition DoD Laboratory Studies Active Condition DoD irregular length of menstrual periods Active Condition keep menstrual calendar, parameters given; notify clinic if exceed parameters DoD MENOPAUSAL DISORDER Active Condition ordered cbc, cmp, tsh, fsh/lh, hcg; will consider starting OCP's to try and stobilize sx's DoD SINUSITIS ACUTE Inactive Condition [facility] ALLERGIC RHINITIS Active Condition DoD Allergies, Adverse Reactions, Alerts Combined list of allergies from Department of Defense and Veterans Affairs facilities. It does not include entries that were removed or entered in error. Substance Category Reaction Severity Reaction type Status Date Reported Comments Source ZINC-10 (DO NOT USE, NOT SCREENED) Drug allergy (disorder) Unknown active 05/31/2008 [place] [address] Immunizations Combined list of available immunizations from the Department of Defense and Veterans Affairs facilities. Immunization Series Date Given Administered By Site Reaction Lot Number CVX Code Drug Yarn Rewinder Status Comments Source hepatitis A vaccine, adult [...] ADM Date DC Date Status Disposition Source [address] [place] [address] [facility] Practice Non-GME FHI2) OUTPATIENT [id number] rash on face and cheast GAL ARMSTRONG 12/19 Released w/o Limitations [address] [place] [address] Har[facility])(F amily Practic e Non-GME FHI2) [address] [place] [address] Haris [facility])([facility] Non-GME FHI1) OUTPATIENT [id number] evaluat SHILPA Black 06/03 Released w/o Limitations [address] [place] [address] Haris [facility])(F amily Practic e Non-GME FHI1) [address] [place] [address] Haris [facility])(Fam yana Practice Non-GME FHI1) OUTPATIENT [id number] f/u appt lab results SHILPA LAMBERT 06/19 Released w/o Limitations [address] [place] [address])(F amily Practic e Non-GME FHI1) [address] [place], [place] [address]B [facility] Non-GME FHI1) TELE CONSULT [id number] lab results MARY SALGUERO 06/[address] [place] [address])(F amily Practic e Non-GME FHI1) [address] [place], [place] [address] [facility] Non-GME FHI2) OUTPATIENT [id number] well woman ROBERJT 07/13 Released w/o Limitations [address] [place], [place] [address] [facility])(F amily Practic e Non-GME FHI2) [address] [place] [address])([facility] Practice Non-GME FHI1) TELE CONSULT [id number] ACTIVE MIGRAIN E MARY SALGUERO 04/[address] [place] [address])(F amily Practic e Non-GME FHI1) [address] [place] [address])([facility] Non-GME FHI1) OUTPATIENT [id number] migrain es-disc uss abortiv e/prohy lactic meds YOVANI CERON 04/19 Released w/o Limitations [address] [place] [address])(F amily Practic e Non-GME FHI1) [address] [place] [address])([facility] Non-GME FHI1) TELE CONSULT [id number] YOVANI CERON 05/[address] [place], [place] [address] [facility])(F amily Practic e Non-GME FHI1) [address] [place] [address])([facility] Non-GME FHI1) TELE CONSULT [id number] Headach es MARY SALGUERO 05/[address] [place], [place] [address] [facility])(F amily Practic e Non-GME FHI1) [address] [place] [address])([facility] Non-GME FHI1) OUTPATIENT [id number] medicat ion review- migrain es-inso mniYOVANI Selby 06/08 Released w/o Limitations [facility]is [facility])(F amily Practic e Non-GME FHI1) [address] [place] [address] Haris [facility])([facility] Non-GME FHI1) OUTPATIENT [id number] ANNUAL PAP. 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 PH:[phone]*C JACLYN PARRA 06/22 Released w/o Limitations [address] [place], [place] [address] [facility])(F amily Practic e Non-GME FHI1) [address] [place] [address] Haris B [facility])([facility] Non-GME FHI1) OUTPATIENT [id number] shoulde r pain DEREK LAWRENCE 11/20 Released w/o Limitations [address] [place] [address] Haris B [facility])(F amily Practic e Non-GME FHI1) [address] [place] [address] Haris B [facility])([facility] Non-GME FHI1) TELE CONSULT [id number] call back per Dr Lawrence - r/t labs from 21 Nov 2007 LILIA VALENTIN 12/[address] [place] [address])(F amily Practic e Non-GME FHI1) [address] [place], [place] [address] [facility])(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) OUTPATIENT [id number] dysplas ia pt - pap with HPV NILSON CRUZ 05/10 Released w/o Limitations [address] [place] [address])(G ynecolo gy) [address] [place], [place] [address] [facility])(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) TELE CONSULT [id number] Call Back, lab results - SOTERO Gandhi 05/[address] [place] [address])(G ynecolo gy) [address] [place], [place] [address] [facility])(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) TELE CONSULT [id number] results NILSON CRUZ 05/[address] [place] [address] Haris B [facility])(G ynecolo gy) [address] [place] [address] Haris B [facility])(War rior Op Med Cln Tm A Ad) OUTPATIENT [id number] clogged ears JACLYN PARRA 12/07 Released w/o Limitations [address] [place] [address] [employer] [facility])(W arrior Op Med Cln Tm A Ad) Procedures Combined list of: 1) Procedures from Department of Veterans Affairs facilities going back up to thelast 18 months, not all [place] non-surgical procedures are included; 2) All procedures from the Department of Defense facilities. Procedure Procedure Type Code Date Perfomer Comments Sourc e ASPIRATION CURETTAGE FOLLOWING DELIVERY OR 07/07/1991 [facility] EPISIOTOMY 06/04/1988 [facility] SCREENING PAPANICOLAOU SMEAR; OBTAINING, PREPARING AND CONVEYANCE OF CERVICAL OR VAGINAL SMEAR TO LABORATORY 05/10/2008 [facility] URINE TEST, BY VISUAL COLOR COMPARISON METHODS 05/30/2007 [facility] URINE TEST, BY VISUAL COLOR COMPARISON METHODS 01/31/2007 [facility] CYTOPATHOLOGY, SMEARS, CERVICAL OR VAGINAL, UP TO THREE SMEARS; SCREENING BY STREETCAR STARTER UNDER PHYSICIAN SUPERVISION 12/01/2006 DoD INJECTION, KETOROLAC TROMETHAMINE, PER 15 MG 04/19/2006 [facility] SCREENING TEST OF VISUAL ACUITY, QUANTITATIVE, BILATERAL 12/02/2005 [facility] SCREENING PAPANICOLAOU SMEAR; OBTAINING, PREPARING AND CONVEYANCE OF CERVICAL OR VAGINAL SMEAR TO LABORATORY 07/13/2005 [facility] Screening papanicolaou smear; obtaining, preparing and conveyance of cervical or vaginal smear to laboratory 05/10/2008 NILSON CRUZ Colposcopy With Biopsy Colposcopy With Biopsy [id number] 05/30/2007 NILSON CRUZ Test Test [id number] 05/30/2007 NILSON CARRASCO Cervical Pap Smear Cervical Pap Smear [id number] [facility] Endometrial Biopsy By Suction Endometrial Biopsy By Suction [id number] 01/31/2007 NILSON CRUZ Test Test [id number] 01/31/2007 NILSON CARRASCO Colposcopy With Biopsy Colposcopy With Biopsy [id number] 01/31/2007 NILSON CRUZ Cervical Pap Smear Cervical Pap Smear 36384 12/01/2006 MARTELL DALLAS Screening papanicolaou smear; obtaining, preparing and conveyance of cervical or vaginal smear to laboratory 12/01/2006 MARTELL DALLAS oD Infusion, normal saline solution , 1000 cc 04/19/2006 YOVANI CERON Injection, ketorolac tromethamine, per 15 mg 04/19/2006 YOVANI CERON Screening papanicolaou smear; obtaining, preparing and conveyance of cervical or vaginal smear to laboratory 07/14/2005 LILIA THOMAS Social History Combined list of available smoking, tobacco, and other social history from Department of Defense and Veterans Affairs facilities. Social History Type Response Date Comment Sourc e This section is an empty social history section. DoD
[2025-03-30 10:41] LABS: Hematocrit 41.2 % (37.0-47.0); Hemoglobin 13.3 g/dL (12.0-15.0); Immature Granulocyte Percent A 0.2 % (0-0.5); Lymphocytes Absolute Auto 1.89 K/mm3 (0.9-3.2); Mean Corpuscular HGB Conc 32.3 g/dl (32-36); Mean Corpuscular Hemoglobin 30.9 pg (26-34); Mean Corpuscular Volume 95.6 fl (80-100); Nucleated Red Blood Cells Absolute Auto 0.000 K/mm3 (0.0-0.012); Nucleated Red Blood Cells Perc 0.0 % (0.0-0.2); Platelet Count Result 360 k/mm3 (150-375); Red Blood Count 4.31 M/mm3 (4.2-5.4); White Blood Count 4.5 K/mm3 (4.5-10.0)
[2025-03-30 11:03] LABS: Alanine Aminotransferase 30 U/L (6-35); Albumin Level 4.3 g/dL (3.5-5.1); Alkaline Phosphatase 59 U/L (38-126); Anion Gap 8 mmol/L (4-12); Aspartate Amino Transferase 30 U/L (14-36); Bilirubin,Total 0.3 mg/dL (0.2-1.3); Blood Urea Nitrogen 13 mg/dL (7-17); Calcium 9.3 mg/dL (8.4-10.2); Carbon Dioxide 28 mmol/L (22-30); Chloride 105 mmol/L (98-107); Cholesterol 274 mg/dL (0-200); Estimated Glomerular Filt Rate > 60; Glucose 95 mg/dL (65-110); HDL Direct 54 mg/dL; Potassium 4.0 mmol/L (3.4-5.0); Sodium 141 mmol/L (137-145); Total Protein 7.3 g/dL (6.3-8.2); Triglycerides 261 mg/dL (<150)
[2025-03-30 11:35] LABS: Thyroid Stimulating Hormone 1.070 uIU/mL (0.465-4.680)
== END 2025-03-30 09:36 | disposition home or self-care (01) ==
LOC: ANHLAB 09:38
PROVIDERS: PCP Internal Medicine; Visit Provider Nurse Practitioner
DX: E78.5 Hyperlipidemia, unspecified (principal); I10 Essential (primary) hypertension; Z13.29 Encounter for screening for other suspected endocrine disorder; E55.9 Vitamin D deficiency, unspecified; R42 Dizziness and giddiness
CPT/HCPCS: 36415; 80053; 80061; 82306; 84443; 85025

== ENCOUNTER 2025-04-24 15:22 | Outpatient (CLI) | payer OTHER, SELFPAY ==
--- NOTE | ~2025-04-24 | DEXA_ITS ---
Bone Density Report Name: TOBIAS ZAMBRANO Age: 65 Sex: Female Ethnicity: White Date of : 1960 Indication: osteopenia; height loss; Referring Provider: Mercedes Servin Study: Bone densitometry was performed. Exam Date: April 24, 2025 Accession number: [id number] Bone Density: Region BMD T-score Z-score Classification AP Spine(L1-L4) 0.901 -1.3 0.4 Osteopenia Femoral Neck (Left) 0.561 -2.6 -1.1 Osteoporosis Total Hip (Left) 0.750 -1.6 -0.4 Osteopenia Femoral Neck (Right) 0.571 -2.5 -1.0 Osteoporosis Total Hip (Right) 0.784 -1.3 -0.1 Osteopenia Total Hip Mean 0.767 -1.5 -0.3 Osteopenia World Health Organization criteria for BMD impression classify patients as: Normal (T-score at or above -1.0), Osteopenia (T-score between -1.0 and -2.5), or Osteoporosis (T-score at or below -2.5). 10-year Fracture Risk: FRAX not reported because: Some T-score for Spine Total or Hip Total or Femoral Neck at or below -2.5 Previous Exams: -- Region Exam Age BMD T-score BMD Change BMD Change Date g/cm2 vs Baseline vs Previous -- AP Spine (L1-L4) 04/24/2025 65 0.901 -1.3 -5.6%* -5.6%* 07/09/2022 62 0.955 -0.8 Total Hip(Left) 04/24/2025 65 0.750 -1.6 -1.8% -1.8% 07/09/2022 62 0.763 -1.5 Total Hip(Right) 04/24/2025 65 0.784 -1.3 -4.5%* -4.5%* 07/09/2022 62 0.821 -1.0 -- *Denotes significance at 95% confidence level, LSC for AP Spine = 0.022 g/cm2, LSC for Total Hip = 0.027 g/cm2 Clinical Information Provided by Patient: Has used the following medications: Vitamin D, Calcium Patient maximum height was 63 Menopause Age: 51 Does not regularly consume dairy products Drinks caffeinated beverages Onset of menses at age 14 Number of children 1 Impression: The patient has osteoporosis, based on the Left Femoral Neck T-score. The BMD for the AP Spine (L1-L4) decreased, changing by -5.6% since the last DXA exam. The BMD for the Total Hip(Right) decreased, changing by -4.5% since the last DXA exam. Discussion: INCREASED RISK OF FRACTURE. BONE DENSITY IS UNDESIRABLY LOW AT ONE OR MORE SKELETAL SITES, CONSISTENT WITH POSTMENOPAUSAL OSTEOPOROSIS. This patient's lowest T-score meets the World Health Organization's (WHO) criteria for osteoporosis at one or more sites (T-score -2.5 or below). In untreated patients, the risk of osteoporotic fracture increases approximately two-fold for each 1.0 SD decrease in T-score. Low bone density is not the only risk factor for fracture; also consider factors such as patient's age, frailty or poor health, risk of falling, risk of injury, previous osteoporotic fracture, family history of osteoporosis, cigarette smoking, low body weight, etc. Not everyone with low bone mineral density has osteoporosis; osteomalacia and other metabolic bone disorders should also be considered. Patients who have osteoporosis should be evaluated for specific diseases and conditions (secondary causes) that may cause or contribute to bone loss. The [place] Association of Clinical Endocrinologists (AACE) and National Osteoporosis Foundation (NOF) recommend pharmacologic intervention for all postmenopausal women whose T-score is in this range. The patient should follow a healthful lifestyle (good nutrition with adequate calcium and vitamin D, and appropriate weight-bearing exercise). Follow-Up: Consider a repeat BMD and Vertebral Fracture Assessment (VFA) exam in 2 years or sooner if medically necessary, to reassess this patient's status. Reported by: CHENCHO on 04/24/2025 3:49:00 PM. Reviewed, dictated and finalized at location A.
== END 2025-04-24 15:23 | disposition home or self-care (01) ==
LOC: MICIMG 15:24
PROVIDERS: PCP Internal Medicine; Visit Provider Nurse Practitioner
DX: M81.0 Age-related osteoporosis without current pathological fracture (principal); Z78.0 Asymptomatic menopausal state; M85.88 Other specified disorders of bone density and structure, other site; M85.852 Other specified disorders of bone density and structure, left thigh; M85.851 Other specified disorders of bone density and structure, right thigh
CPT/HCPCS: 77080

== ENCOUNTER 2025-05-29 07:48 | Outpatient (CLI) | payer OTHER, SELFPAY ==
--- OUTSIDE RECORDS SUMMARY | 2025-05-29 08:11 | XMS_ITS | Clinical Summary ---
Author Organization [facility] Address [address] [place] [address] Care Team Providers Care Second Chef Name Role Phone Unavailable Primary Care Provider [...] COVID-19 Vaccine ( - 2023-2 5 season) 2025 RSV Immunization or 60+ Years (1 - [...]
--- OUTSIDE RECORDS SUMMARY | 2025-05-29 08:11 | XMS_ITS | Clinical Summary ---
Author Organization [facility] Address [address] [address] Care Team Providers Care Exploration Geologist Name Role Phone Michel Mcgee DO Primary Care Provider [phone] [phone] Source Comments [facility],non-owned Affiliates and Associated Physician Practices is amultiple site organization consisting of ambulatory clinics and hospital sitesin [place], [place], [place] and [place]. This disclosure is being madepursuant to the Care Everywhere program and may not contain all information available regarding this patient. Last updated 18.[facility] Allergies Active Allergy Reactions Criticality Noted Date [...] 2011 ZOSTER VACCINE (1 of 2) 2011 DEPRESSION SCREENING 09/20/2024 COVID-19 VACCINE (1 - 2023-2 5 season) 2025 INFLUENZA VACCINE (#1) 2025 Respiratory Syncytial Virus (RSV) Vaccine Pt: [...] patient's age to complete this topic Insurance [facility] Care Teams Exploration Geologist Relationship Specialty Start Date End Date Michel Mcgee DO PCP - General Internal Medicine 02/26/17
[2025-05-29 08:30] LABS: Hematocrit 43.6 % (37.0-47.0); Hemoglobin 14.0 g/dL (12.0-15.0); Immature Granulocyte Percent A 0.2 % (0-0.5); Lymphocytes Absolute Auto 2.03 K/mm3 (0.9-3.2); Mean Corpuscular HGB Conc 32.1 g/dl (32-36); Mean Corpuscular Hemoglobin 30.2 pg (26-34); Mean Corpuscular Volume 94.2 fl (80-100); Nucleated Red Blood Cells Absolute Auto 0.000 K/mm3 (0.0-0.012); Nucleated Red Blood Cells Perc 0.0 % (0.0-0.2); Platelet Count Result 325 k/mm3 (150-375); Red Blood Count 4.63 M/mm3 (4.2-5.4); White Blood Count 4.2 K/mm3 (4.5-10.0)
[2025-05-29 08:45] LABS: Alanine Aminotransferase 31 U/L (6-35); Albumin Level 4.7 g/dL (3.5-5.1); Alkaline Phosphatase 66 U/L (38-126); Anion Gap 8 mmol/L (4-12); Aspartate Amino Transferase 29 U/L (14-36); Bilirubin,Total 0.4 mg/dL (0.2-1.3); Blood Urea Nitrogen 13 mg/dL (7-17); Calcium 9.6 mg/dL (8.4-10.2); Carbon Dioxide 29 mmol/L (22-30); Chloride 105 mmol/L (98-107); Estimated Glomerular Filt Rate > 60; Glucose 106 mg/dL (65-110); Potassium 4.5 mmol/L (3.4-5.0); Sodium 142 mmol/L (137-145); Total Protein 7.9 g/dL (6.3-8.2)
[2025-05-29 09:20] LABS: Thyroid Stimulating Hormone 0.661 uIU/mL (0.465-4.680)
== END 2025-05-29 07:49 | disposition home or self-care (01) ==
LOC: ANHLAB 07:50
PROVIDERS: PCP Internal Medicine; Visit Provider Clinical Nurse Specialist
DX: E83.52 Hypercalcemia (principal); I10 Essential (primary) hypertension
CPT/HCPCS: 36415; 80053; 84443; 85025

== ENCOUNTER 2025-09-18 15:43 | Emergency (ER) | payer OTHER, SELFPAY ==
--- OUTSIDE RECORDS SUMMARY | 2025-09-18 15:45 | XMS_ITS | Clinical Summary ---
Author Organization [facility] Address [address] [place] [address] Care Team Providers Care Flour Distributor Name Role Phone Unavailable Primary Care Provider [...] Vaccines (1 of 2) 2011 COVID-19 Vaccine (2024-2 6 season) 2025 Influenza Adult (#1) 2025 RSV Immunization or 60+ Years (1 - 1-dose 75+ series) 02/04/2036 Hepatitis A Vaccines Aged Out No long er eligible based on patient's age to complete this topic Meningococcal B Vaccine Aged Out No l onger eligible based on patient's age to complete this topic Meningococcal Vaccine Aged Out No catherine bibiana eligible based on patient's age to complete this topic RSV Immunizations Under 20 Months Aged Out No longer eligible based on patient's age to complete this topic
[2025-09-18 15:53] VITALS: BP 157/76; PULSE 113; RESP 18; TEMP 36.9; O2SAT 98
[2025-09-18 16:11] LABS: EDCOVIDSCREEN Positive (Negative)
[2025-09-18 16:16] LABS: EDINFLUASCREEN Negative (Negative); EDINFLUBSCREEN Negative (Negative)
--- NOTE | 2025-09-18 16:22 | ED_ITS ---
HPI - General Adult General Chief complaint: Upper Respiratory Infection Stated complaint: sinus Source: patient Mode of arrival: ambulatory Limitations: no limitations History of Present Illness HPI narrative: Patient presents for evaluation of sick symptoms for the past 2 days. Symptoms include sinus congestion, nasal drainage and cough. She denies any fever, chills, nausea, vomiting or diarrhea. No recent sick contacts to her knowledge. She has been taking [id number] cough and cold medicine with minimal improvement. Related Data Home Medications ?Medication ?Instructions ?Recorded ?Confirmed ?Last Taken ?Type nortriptyline 10 mg capsule 20 mg PO HS 02/03/2205/29 Unknown History fremanezumab-vfrm 225 mg/1.5 mL 225 mg subcut MONTHLY 07/17/22 05/29/25 Unknown History subcutaneous syringe (Ajovy Syringe) aspirin 81 mg tablet,delayed 81 mg PO DAILY 07/14/23 0 05/29/25 Unknown History release (Adult Aspirin Regimen) cholecalciferol (vitamin D3) 25 25 mcg PO DAILY 05/29/25 Unknown History mcg (1,000 unit) capsule ubrogepant 50 mg tablet (Ubrelvy) 50 mg PO PRN PRN Peter cory Headache 02/08/24 05/29/25 Unknown History Allergies Allergy/AdvReac Type Severity Reaction Status Date / Time baclofen Allergy Chest Pain Verified 09/18/25 15:45 ketorolac Allergy Chest Pain Verified 09/18/25 15:45 peanut Allergy Headache Verified 09/18/25 15:45 propranolol Allergy Chest Pain Verified 09/18/25 15:45 dicyclomine AdvReac Intermediate Palpitation Verified 09/18/25 15:45 s levofloxacin AdvReac Intermediate Chest Pain Verified 09/18/25 15:45 sumatriptan AdvReac Intermediate HEART Verified 09/18/25 15:45 PALPITATIONS topiramate AdvReac Intermediate HEART Verified 09/18/25 15:45 PALPITATION tramadol AdvReac Intermediate Jittery Verified 09/18/25 15:45 acetaminophen AdvReac Mild RASH/SWELLI Verified 09/18/25 15:45 NG hydrocodone AdvReac Mild Rash,SWELLI Verified 09/18/25 15:45 NG Iodinated Contrast Media AdvReac Mild Hives Verified 09/18/25 15:45 triamterene AdvReac Mild Hives Verified 09/18/25 15:45 Review of Systems Review of Systems: CONSTITUTIONAL: Denies fever, chills, or sweats. EYES: Denies visual changes, redness, or discharge. ENT: reports sinus congestion and nasal drainage. Denies sore throat or otalgia. CARDIOVASCULAR: Denies chest pain, palpitations, or edema. RESPIRATORY: Reports cough. Denies dyspnea. GASTROINTESTINAL: Denies abdominal pain, nausea, vomiting, or diarrhea. GENITOURINARY: Denies dysuria or hematuria. SKIN: Denies rash or itching. MUSCULOSKELETAL: Denies back pain, joint pain, or myalgia. NEUROLOGIC: Denies headache, numbness, dizziness, or weakness. PSYCHIATRIC: Denies anxiety or depression. [facility] Past Medical History Medical History Cervical vertebral fusion (~2010) Cerebral infarction History of ectopic 1992 Herniated disc Heartburn Depression Anemia Allergies Migraine Hypersomnia Hyperlipidemia Hypertension Vertigo Surgical History Surgical History History of lumbar fusion (~1999) H/O tubal ligation 1997 H/O dilation and curettage 1990 Family History Family History Sibling Family history of osteoporosis Patient's sister is in good health Mother Patient's mother is in good health Family history of osteoarthritis Father Patient's father is in good health Family history of diabetes mellitus in first degree relative Grandparent Family history of osteoarthritis Diabetes mellitus Other Asthma Family history of allergic disorder Family history of migraine headaches Social History Social History Smoking status: Former smoker Tobacco type: cigarettes Second hand tobacco smoke exposure: No Smoking end date: 09/20/86 Alcohol intake: current Drinks per week: 3 Substance use: never Lack of Transportation: No Lack of Food: Never True Current Housing: I Have Housing Concerned About Future Housing: No Difficulty Paying Gas/Electric Bills: No Difficulty Paying for Meds: No Currently Unemployed: No Education: Associate Degree Difficulty w/ Childcare or Family Care: No Living arrangements: with family Occupation/Education: occupation Gender identity (if verbalized by the patient): Female Sexual Orientation (if Verbalized by the Patient): Straight or Heterosexual Exam Narrative: GENERAL: Well-appearing, well-nourished, and in no acute distress. HEAD: Normocephalic, atraumatic. EYES: PERRLA and EOMI. ENT: Nares clear, no rhinorrhea or epistaxis. Mucous membranes moist. Oropharynx without tonsillar hypertrophy exudate or other lesions. Bilateral TMs pearly santana nonbulging NECK: Supple. No adenopathy or masses. No carotid bruits or JVD CHEST: Clear to auscultation. No respiratory distress. No wheezes rales or rhonchi HEART: Regular rate and rhythm. No murmur heard. Normal peripheral pulses. ABDOMEN: Soft, nontender, nondistended, normal active bowel sounds. EXTREMITIES: Normal range of motion. No edema. SKIN: Warm, dry, no rash. NEURO: No focal deficits. Alert and oriented x3. PSYCH: Normal mood and affect. Course Course Emergency Course: This is a 65-year-old female who presented for evaluation of sick symptoms. COVID positive. She appears well clinically on exam. Her heart rate improved my exam. Saturations are normal. Will discharge with Tessalon. Advised on quarantine measures. Increase hydration. [id number] agents for symptom management. Follow up with primary provider. Go to the ER for worsening symptoms. Patient in agreement with plan of care Level of Care: Express Care Visit Vital Signs Vital signs: Vital Signs Temperature 36.9 C 09/18/25 15:53 Pulse Rate 113 H 09/18/25 15:53 Respiratory Rate 18 09/18/25 15:53 Blood Pressure 157/76 H 09/18/25 15:53 Pulse Oximetry 98 09/18/25 15:53 Oxygen Delivery Room Air 09/18/25 15:53 Temperature 36.9 C 09/18/25 15:53 Pulse Rate 113 H 09/18/25 15:53 Respiratory Rate 18 09/18/25 15:53 Blood Pressure 157/76 H 09/18/25 15:53 Pulse Oximetry 98 09/18/25 15:53 Oxygen Delivery Room Air 09/18/25 15:53 MDM Differential Diagnosis Differential Diagnosis: covid vs flu vs sinusitis vs other Lab Data Labs: Lab Results 09/18/25 09/18/25 Range/Units 16:09 16:14 POC Influenza A Ag Negative (Negative) POC Influenza B Ag Negative (Negative) POC SARS CoV-2 Ag Positive (Negative) Discharge Plan Discharge Clinical Impression: COVID Patient Disposition: Home Condition: Stable Instructions: Antibiotic Form, COVID-19 (Coronavirus Disease 2019) (ED) Patient Language: Panamanian Prescriptions: New benzonatate 200 mg capsule 200 mg PO TID PRN (Reason: cough) Qty: 30 0RF No Action nortriptyline 10 mg capsule 20 mg PO HS Ubrelvy 50 mg tablet 50 mg PO PRN PRN (Reason: Migraine Headache) Ajovy Syringe 225 mg/1.5 mL syringe 225 mg subcut MONTHLY aspirin [Adult Aspirin Regimen] 81 mg tablet,delayed release (DR/EC) 81 mg PO DAILY cholecalciferol (vitamin D3) 25 mcg (1,000 unit) capsule 25 mcg PO DAILY atorvastatin [Lipitor] 10 mg tablet 10 mg PO QHS Qty: 90 3RF Follow-up/Referrals: Michel Mcgee DO [Primary Care Provider, Internal Medicine] Stand Alone Forms: Work/School Release IP Time of Disposition: 16:19
== END 2025-09-18 16:21 | disposition home or self-care (01) ==
PROVIDERS: Emergency Provider Nurse Practitioner; PCP Internal Medicine
DX: U07.1 COVID-19 (principal); I10 Essential (primary) hypertension; E78.5 Hyperlipidemia, unspecified; R12 Heartburn; I25.2 Old myocardial infarction; Z79.82 Long term (current) use of aspirin; F32.A Depression, unspecified; Z87.891 Personal history of nicotine dependence
CPT/HCPCS: 87426; 87804; 99213; G0463